=== PATIENT | female | born 1935 | race Hispanic/Latino ===

== ENCOUNTER 2017-08-06 14:58 | Emergency (ER) | payer MEDICARE, BC ==
[2017-08-06 14:59] VITALS: BMI 29.2
[2017-08-06 15:10] VITALS: TEMP 97.8
--- NOTE | 2017-08-06 16:14 | ED PDOC ---
Arrival/HPI - General Chief Complaint: Finger,Hand,&Wrist Time Seen by Provider: 08/06/17 15:01 Historian: Patient - History of Present Illness Narrative History of Present Illness (Text): 08/06/17 15:05 A 81 year old female, with no significant past medical history, presents to the emergency department complaining of left hand 5th digit swelling. Patient reports she was ambulating in her house and tripped in the hallway. She reached out with her left hand to stop fall and her hand hit the wall. Patient denies any fever, chills, numbness/weakness, or any other complaints. No PMD Past Medical History - Provider Review Nursing Documentation Reviewed: Yes - Infectious Disease Hx of Infectious Diseases: None - Tetanus Immunization Tetanus Immunization: Unknown - Reproductive Menopause: Yes - Cardiac Hx Cardiac Disorders: Yes Hx Mitral Valve Prolapse: Yes - Pulmonary Hx Respiratory Disorders: No - Neurological Hx Neurological Disorder: Yes Hx Migraine: Yes - HEENT Hx HEENT Disorder: No - Renal Hx Renal Disorder: No - Endocrine/Metabolic Hx Endocrine Disorders: No - Hematological/Oncological Hx Blood Disorders: No - Integumentary Hx Dermatological Disorder: No - Musculoskeletal/Rheumatological Hx Falls: No - Gastrointestinal Hx Gastrointestinal Disorders: Yes - Genitourinary/Gynecological Hx Genitourinary Disorders: Yes Hx Incontinence: Yes - Psychiatric Hx Psychophysiologic Disorder: Yes Hx Depression: Yes Hx Substance Use: No - Surgical History Hx Cholecystectomy: Yes Hx Orthopedic Surgery: Yes (R hip replacement) - Anesthesia Hx Anesthesia: Yes Hx Anesthesia Reactions: No - Suicidal Assessment Feels Threatened In Home Enviroment: No Family/Social History - Physician Review Nursing Documentation Reviewed: Yes Family/Social History: No Known Family HX Smoking Status: Light Smoker < 10 Cigarettes Daily Hx Alcohol Use: Yes (2 glasses of scotch/day) Hx Substance Use: No Hx Substance Use Treatment: No Allergies/Home Meds Allergies/Adverse Reactions: Allergies No Known Allergies Allergy (Verified 08/06/17 15:06) Home Medications: Home Meds Medication Instructions Recorded Confirmed Vortioxetine Hydrobromide 10 mg PO DAILY 08/06/17 08/06/17 [Trintellix] Review of Systems - Review of Systems Constitutional: absent: Fevers, Night Sweats Eyes: Normal ENT: Normal Respiratory: Normal Cardiovascular: Normal Gastrointestinal: Normal Genitourinary Female: Normal Musculoskeletal: Other (swelling to left hand 5th digit) Skin: Normal Neurological: absent: Focal Weakness, Other (no numbness/weakness) Endocrine: Normal Hemo/Lymphatic: Normal Psychiatric: Normal Physical Exam Vital Signs Reviewed: Yes Vital Signs Temp Pulse Resp BP Pulse Ox 08/06/17 15:09 97.8 F 98 H 17 140/66 97 Temperature: Afebrile Blood Pressure: Normal Pulse: Regular Respiratory Rate: Normal Appearance: Positive for: Well-Appearing Pain Distress: None Mental Status: Positive for: Alert and Oriented X 3 - Systems Exam Pupils: Present: PERRL Extroacular Muscles: Present: EOMI Back: Present: Other (C5-C8 muscle M/R/U/ain/pin) Upper Extremity: Present: NORMAL PULSES (+2 radial pulses), Swelling (left hand 5th digit swelling; inability to extend), Other (sensation intact) Medical Decision Making ED Course and Treatment: 08/06/17 15:07 Impression: 81 year old female with left hand 5th digit swelling. Plan: -- Reassess and disposition Progress Notes: - Scribe Statement The provider has reviewed the documentation as recorded by the Luis Colorado Provider Scribe Attestation: All medical record entries made by the Scribe were at my direction and personally dictated by me. I have reviewed the chart and agree that the record accurately reflects my personal performance of the history, physical exam, medical decision making, and the department course for this patient. I have also personally directed, reviewed, and agree with the discharge instructions and disposition. Disposition/Present on Arrival - Present on Arrival Any Indicators Present on Arrival: No History of DVT/PE: Yes History of Uncontrolled Diabetes: No Urinary Catheter: No History of Decub. Ulcer: No History Surgical Site Infection Following: None - Disposition Have Diagnosis and Disposition been Completed?: Yes Diagnosis: Fracture of left hand Disposition: HOME/ ROUTINE Disposition Time: 16:15 Patient Problems: Current Active Problems Problem Status Onset Fracture of left hand Acute Condition: STABLE Additional Instructions: see orthopedist this week. Referrals: Saray Woodruff, [Primary Care Provider] - Follow up with primary Forms: [employer] (Namibian)
[2017-08-06 16:26] VITALS: BP 135/87; PULSE 84; RESP 16; O2SAT 98
== END 2017-08-06 16:24 | disposition home or self-care (01) ==
LOC: ED 14:58
DX: S62.92XA Unspecified fracture of left hand, initial encounter for closed fracture (principal); W01.0XXA Fall on same level from slipping, tripping and stumbling without subsequent striking against object, initial encounter; Y92.008 Other place in unspecified non-institutional (private) residence as the place of occurrence of the external cause

== ENCOUNTER 2017-12-12 13:03 | Emergency (ER) | payer MEDICARE, BC ==
[2017-12-12 13:03] VITALS: BMI 29.2
[2017-12-12 13:24] VITALS: TEMP 98.3
--- NOTE | 2017-12-12 14:18 | RAD ---
PROCEDURE: Right Foot Radiographs. HISTORY: foot pain s/p trauma COMPARISON: None. FINDINGS: BONES: There is a displaced obliquely oriented fracture of the 5th metatarsal JOINTS: Normal. SOFT TISSUES: Normal. OTHER FINDINGS: None. IMPRESSION: There is a displaced obliquely oriented fracture of the 5th metatarsal
--- NOTE | 2017-12-12 14:26 | ED PDOC ---
Arrival/HPI - General Chief Complaint: Lower Extremity Problem/Injury Time Seen by Provider: 12/12/17 13:46 Historian: Patient - History of Present Illness Narrative History of Present Illness (Text): 12/12/17 14:33 82yo female with pmhx of hypertension present with complaint of right foot pain. States she injured the foot over a week ago, when she woke up to close her window at night. Thinks she "bumped" her foot against an object. She states she has been soaking it on alkaline water without relieve. Denies any other complaint. Past Medical History - Provider Review Nursing Documentation Reviewed: Yes - Infectious Disease Hx of Infectious Diseases: None - Tetanus Immunization Tetanus Immunization: Unknown - Cardiac Hx Cardiac Disorders: Yes Hx Mitral Valve Prolapse: Yes - Pulmonary Hx Respiratory Disorders: No - Neurological Hx Neurological Disorder: Yes Hx Migraine: Yes - HEENT Hx HEENT Disorder: No - Renal Hx Renal Disorder: No - Endocrine/Metabolic Hx Endocrine Disorders: No - Hematological/Oncological Hx Blood Disorders: No - Integumentary Hx Dermatological Disorder: No - Musculoskeletal/Rheumatological Hx Falls: No - Gastrointestinal Hx Gastrointestinal Disorders: Yes - Genitourinary/Gynecological Hx Genitourinary Disorders: Yes Hx Incontinence: Yes - Psychiatric Hx Psychophysiologic Disorder: Yes Hx Depression: Yes Hx Substance Use: No - Surgical History Hx Cholecystectomy: Yes Hx Orthopedic Surgery: Yes (R hip replacement) - Anesthesia Hx Anesthesia: Yes Hx Anesthesia Reactions: No - Suicidal Assessment Feels Threatened In Home Enviroment: No Family/Social History - Physician Review Nursing Documentation Reviewed: Yes Family/Social History: Unknown Family HX Smoking Status: Light Smoker < 10 Cigarettes Daily Hx Alcohol Use: Yes (2 glasses of scotch/day) Hx Substance Use: No Hx Substance Use Treatment: No Allergies/Home Meds Allergies/Adverse Reactions: Allergies No Known Allergies Allergy (Verified 12/12/17 13:08) Home Medications: Home Meds Medication Instructions Recorded Confirmed Vortioxetine Hydrobromide 10 mg PO DAILY 08/06/17 12/12/17 [Trintellix] Losartan [Cozaar] 25 mg PO DAILY 12/12/17 12/12/17 Review of Systems - Physician Review All systems were reviewed & negative as marked: Yes - Review of Systems Constitutional: Normal Eyes: Normal ENT: Normal Respiratory: Normal Cardiovascular: Normal Gastrointestinal: Normal Genitourinary Female: Normal Musculoskeletal: Arthralgias (Right foot pain) Skin: Normal Neurological: Normal Endocrine: Normal Hemo/Lymphatic: Normal Psychiatric: Normal Physical Exam Vital Signs Reviewed: Yes Vital Signs Temp Pulse Resp BP Pulse Ox 12/12/17 15:03 68 18 128/70 100 12/12/17 13:15 98.3 F 83 16 158/72 H 97 Temperature: Afebrile Blood Pressure: Normal Pulse: Regular Respiratory Rate: Normal Appearance: Positive for: Well-Appearing, Non-Toxic, Comfortable Pain Distress: None Mental Status: Positive for: Alert and Oriented X 3 - Systems Exam Head: Present: Atraumatic, Normocephalic Pupils: Present: PERRL Extroacular Muscles: Present: EOMI Conjunctiva: Present: Normal Mouth: Present: Moist Mucous Membranes Neck: Present: Normal Range of Motion Respiratory/Chest: Present: Clear to Auscultation, Good Air Exchange. No: Respiratory Distress, Accessory Muscle Use Cardiovascular: Present: Regular Rate and Rhythm, Normal S1, S2. No: Murmurs Abdomen: No: Tenderness, Distention, Peritoneal Signs Back: Present: Normal Inspection Upper Extremity: Present: Normal Inspection. No: Cyanosis, Edema Lower Extremity: Present: NORMAL PULSES, Normal ROM, Tenderness (Right 5th toe/ foot area), Swelling (Right 5th toe/foot). No: Edema Neurological: Present: GCS=15, CN II-XII Intact, Speech Normal Skin: Present: Warm, Dry, Normal Color. No: Rashes Psychiatric: Present: Alert, Oriented x 3, Normal Insight, Normal Concentration Medical Decision Making ED Course and Treatment: 12/12/17 20:19 Right foot xray - 5th digit oblique fracture Toe edgardo taped and ortho shoe given Referred to a precipitate washer Pt declined pain medication in ED, states she don't like taking medication. - RAD Interpretation Radiology Orders: 12/12/17 13:46 FOOT RIGHT 3 VIEWS ROUTINE [RAD] Stat Disposition/Present on Arrival - Present on Arrival Any Indicators Present on Arrival: No History of DVT/PE: Yes History of Uncontrolled Diabetes: No Urinary Catheter: No History of Decub. Ulcer: No History Surgical Site Infection Following: None - Disposition Have Diagnosis and Disposition been Completed?: Yes Diagnosis: Toe fracture Disposition: HOME/ ROUTINE Disposition Time: 14:45 Patient Plan: Discharge Condition: STABLE Discharge Instructions (ExitCare): Toe Fracture (DC) Additional Instructions: Follow up with your Doctor/Ingot Car Operator Return to ED for any new or worsening symptoms Referrals: Brian Garcia DPM [Staff Provider] - Follow up with primary Forms: [employer] (Nicaraguan)
[2017-12-12 15:03] VITALS: BP 128/70; PULSE 68; RESP 18; O2SAT 100
== END 2017-12-12 15:03 | disposition home or self-care (01) ==
LOC: ED 13:03
DX: S92.351A Displaced fracture of fifth metatarsal bone, right foot, initial encounter for closed fracture (principal); W22.8XXA Striking against or struck by other objects, initial encounter; Y92.009 Unspecified place in unspecified non-institutional (private) residence as the place of occurrence of the external cause

== ENCOUNTER 2018-06-03 12:04 | Emergency (ER) | payer MEDICARE, BC ==
[2018-06-03 12:04] VITALS: BMI 29.2
[2018-06-03 12:26] VITALS: TEMP 98.5
[2018-06-03] MEDS ORDERED: TDAP Vaccine 0.5 mL Syr IM ONE (12:36)
--- NOTE | 2018-06-03 12:42 | ED PDOC ---
Arrival/HPI - General Chief Complaint: Upper Extremity Problem/Injury Historian: Patient - History of Present Illness Narrative History of Present Illness (Text): 06/03/18 12:37 A 82 year old female, whose past medical history includes hypertension(compliant with medication), mitral valve prolapse, and depression, presents to the emergency department complaining of pain s/p fall yesterday. Patient reports she tripped over box of cat food in her hallway at home, and landed on her face and left side. Afterwards she was helped up by her son. States she has an abrasion to the bridge of her nose, and pain to her left forearm/elbow/wrist/hip. Mentions initially she felt only sore, now today she is experiencing pain and became concerned, so the patient decided to come to the ER to be evaluated. Patient denies any LOC, left shoulder pain, bilateral leg pain, neck pain, back pain, abdominal pain, or any other complaints at this time. Also, patient notes she has never had a tetanus shot. NKDA. Notes she is always dizzy. PMD: Dr. Grier Time/Duration: Other (yesterday) Symptom Onset: Gradual Symptom Course: Unchanged Past Medical History - Provider Review Nursing Documentation Reviewed: Yes - Infectious Disease Hx of Infectious Diseases: None - Tetanus Immunization Tetanus Immunization: Unknown - Cardiac Hx Cardiac Disorders: Yes Hx Mitral Valve Prolapse: Yes - Pulmonary Hx Respiratory Disorders: No - Neurological Hx Neurological Disorder: Yes Hx Migraine: Yes - HEENT Hx HEENT Disorder: No - Renal Hx Renal Disorder: No - Endocrine/Metabolic Hx Endocrine Disorders: No - Hematological/Oncological Hx Blood Disorders: No - Integumentary Hx Dermatological Disorder: No - Musculoskeletal/Rheumatological Hx Falls: No - Gastrointestinal Hx Gastrointestinal Disorders: Yes - Genitourinary/Gynecological Hx Genitourinary Disorders: Yes Hx Incontinence: Yes - Psychiatric Hx Psychophysiologic Disorder: Yes Hx Depression: Yes Hx Substance Use: No - Surgical History Hx Cholecystectomy: Yes Hx Orthopedic Surgery: Yes (R hip replacement) - Anesthesia Hx Anesthesia: Yes Hx Anesthesia Reactions: No - Suicidal Assessment Feels Threatened In Home Enviroment: No Family/Social History - Physician Review Nursing Documentation Reviewed: Yes Family/Social History: No Known Family HX Smoking Status: Light Smoker < 10 Cigarettes Daily Hx Alcohol Use: Yes Hx Substance Use: No Hx Substance Use Treatment: No Allergies/Home Meds Allergies/Adverse Reactions: Allergies No Known Allergies Allergy (Verified 06/03/18 12:20) Home Medications: Home Meds Medication Instructions Recorded Confirmed Vortioxetine Hydrobromide 10 mg PO DAILY 08/06/17 06/03/18 [Trintellix] Losartan [Cozaar] 25 mg PO DAILY 12/12/17 06/03/18 Review of Systems - Physician Review All systems were reviewed & negative as marked: Yes - Review of Systems Gastrointestinal: absent: Abdominal Pain Musculoskeletal: Other (left forearm/elbow/wrist/hip pain, no bilateral leg pain and no left shoulder pain.). absent: Back Pain, Neck Pain Skin: Other (abrasion to bridge of nose.) Neurological: Dizziness (baseline). absent: Other (no LOC) Physical Exam Vital Signs Reviewed: Yes Vital Signs Temp Pulse Resp BP Pulse Ox 06/03/18 12:20 98.5 F 77 16 152/77 H 94 L Temperature: Afebrile Blood Pressure: Normal Pulse: Regular Respiratory Rate: Normal Appearance: Positive for: Well-Appearing, Non-Toxic, Comfortable Pain Distress: None Mental Status: Positive for: Alert and Oriented X 3 - Systems Exam Head: Present: Atraumatic, Normocephalic Pupils: Present: PERRL Extroacular Muscles: Present: EOMI Conjunctiva: Present: Normal Mouth: Present: Moist Mucous Membranes Nose (External): Present: Abrasion (bridge of nose, some ecchymosis, no active bleeding.) Neck: Present: Normal Range of Motion Respiratory/Chest: Present: Clear to Auscultation, Good Air Exchange. No: Respiratory Distress, Accessory Muscle Use Cardiovascular: Present: Regular Rate and Rhythm, Normal S1, S2. No: Murmurs Abdomen: No: Tenderness, Distention, Peritoneal Signs Back: Present: Normal Inspection Upper Extremity: Present: Tenderness (left hip/forearm/elbow/wrist), Swelling (mild swelling to left elbow) Lower Extremity: Present: Normal Inspection. No: Edema Neurological: Present: GCS=15, CN II-XII Intact, Speech Normal Skin: Present: Warm, Dry, Normal Color. No: Rashes Psychiatric: Present: Alert, Oriented x 3, Normal Insight, Normal Concentration Medical Decision Making ED Course and Treatment: 06/03/18 12:42 Impression: 82 year old female with an abrasion to the bridge of her nose, and pain to her left forearm/elbow/wrist/hip s/p fall. Physical exam shows left hip/forearm/wrist/elbow tenderness, mild swelling to left elbow; abrasion to bridge of nose, some ecchymosis, no active bleeding at this time. Plan: -- Maxillofacial CT -- Left Elbow X-ray -- Left Hip X-Ray -- Left Humerus X-Ray -- Left Wrist X-Ray -- Left Forearm X-Ray -- Tylenol -- Boostrix Vaccine -- Reassess and disposition Prior Visits: Notes and results from previous visits were reviewed. Patient was last seen here in the emergency department on 12/12/2017 for right foot pain. Patient was discharged home with toe fracture. Progress Notes: 06/03/2018 14:06 Left Humerus X-Ray IMPRESSION: Acute nondisplaced impacted fracture in the humeral head. No dislocation. Dictator: Sophy Kinsey MD 06/03/2018 14:07 Left Elbow X-ray IMPRESSION: Acute nondisplaced fracture in the radial head. No dislocation. The study is tagged to the PA review folder. Dictator: Sophy Kinsey MD 06/03/18 14:[address] Ga, who agrees with emergency department treatment and plan, and agrees to have patient follow-up with him at his office. 06/03/18 15:[address] IMPRESSION: No acute fracture. Dictator: Sophy Kinsey MD - Scribe Statement The provider has reviewed the documentation as recorded by the Luis Colorado Provider Scribe Attestation: All medical record entries made by the Luis were at my direction and personally dictated by me. I have reviewed the chart and agree that the record accurately reflects my personal performance of the history, physical exam, medical decision making, and the department course for this patient. I have also personally directed, reviewed, and agree with the discharge instructions and disposition. Disposition/Present on Arrival - Present on Arrival Any Indicators Present on Arrival: No History of DVT/PE: Yes History of Uncontrolled Diabetes: No Urinary Catheter: No History of Decub. Ulcer: No History Surgical Site Infection Following: None - Disposition Have Diagnosis and Disposition been Completed?: Yes Diagnosis: Radial head fracture, Humeral head fracture Disposition: HOME/ ROUTINE Disposition Time: 15:29 Condition: GOOD Discharge Instructions (ExitCare): Forearm Fracture (DC), Radius Fracture, Shoulder Fracture (DC) Additional Instructions: Follow up with the orthopedics as soon as possible and keep your left arm on the sling as much as possible and do not remove the posterior splint. Call Dr Myrtle Ga to make an appointment # [phone]. Prescriptions: Acetaminophen [Tylenol 325mg tab] 650 mg PO Q4 #20 tab Referrals: Myrtle Ga MD [Staff Provider] - Follow up with primary Forms: [employer] (Faroese)
--- NOTE | 2018-06-03 14:10 | RAD ---
PROCEDURE: Radiographs of the left humerus. HISTORY: s/p fall COMPARISON: None. FINDINGS: BONES: Bone alignment is normal. There is diffuse bone demineralization. 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 SOFT TISSUES: Normal. OTHER FINDINGS: None. IMPRESSION: Acute nondisplaced impacted fracture in the humeral head. No dislocation.
--- NOTE | 2018-06-03 14:11 | RAD ---
Date of service: 06/03/2018 PROCEDURE: Radiographs of the left elbow. HISTORY: s/p fall COMPARISON: No prior. FINDINGS: BONES: There is an acute transverse nondisplaced fracture in the radial head. Bone alignment is normal. There is diffuse bone demineralization. JOINTS: Normal. No osteoarthritis. SOFT TISSUES: Normal. JOINT EFFUSION: None. OTHER FINDINGS: None IMPRESSION: Acute nondisplaced fracture in the radial head. No dislocation. The study is tagged to the PA review folder.
[2018-06-03 15:30] VITALS: BP 148/71; PULSE 71; RESP 18; O2SAT 98
--- NOTE | 2018-06-03 15:38 | CT ---
Date of service: 06/03/2018 PROCEDURE: CT MAXILLOFACIAL BONES WITHOUT CONTRAST HISTORY: s/p fall bleeing from nose COMPARISON: None available. TECHNIQUE: Contiguous axial CT images of the maxillofacial bones were obtained. Coronal and sagittal reformats were generated. Radiation dose: Total exam DLP = 869.61 mGy-cm. This CT exam was performed using one or more of the following dose reduction techniques: Automated exposure control, adjustment of the mA and/or kV according to patient size, and/or use of iterative reconstruction technique. FINDINGS: NASAL BONES: The nasal bones are intact. No acute displaced fracture. ORBITS: No acute orbital fracture. The globes are symmetric and normal in appearance. PARANASAL SINUSES/ MASTOIDS: Predominantly clear. MAXILLA: No acute maxillofacial fracture. MANDIBLE/ TEMPOROMANDIBULAR JOINTS: No acute fracture or dislocation. SKULL BASE: Unremarkable. TEMPORAL BONES: Middle ears and mastoid grossly unremarkable. OTHER FINDINGS: None. IMPRESSION: No acute fracture.
== END 2018-06-03 15:53 | disposition home or self-care (01) ==
LOC: ED 12:04
DX: S52.125A Nondisplaced fracture of head of left radius, initial encounter for closed fracture (principal); S42.392A Other fracture of shaft of left humerus, initial encounter for closed fracture; W01.0XXA Fall on same level from slipping, tripping and stumbling without subsequent striking against object, initial encounter; Y92.008 Other place in unspecified non-institutional (private) residence as the place of occurrence of the external cause

== ENCOUNTER 2018-07-06 12:29 | Inpatient (IN) | payer MEDICARE, BC ==
[2018-07-06 12:34] VITALS: BMI 22.8
--- NOTE | 2018-07-06 13:16 | ED PDOC ---
Arrival/HPI - General Chief Complaint: Psychiatric Evaluation Historian: Patient - History of Present Illness Narrative History of Present Illness (Text): 07/06/18 13:14 82 year old female, whose past medical history hypertension, mitral valve prolapse, and depression, presents to the emergency department complaining of depression and suicidal ideation for the past month. Patient states she is working with Dr. Green, but is unhappy with her medication (klonopin and Zanax) she still feels depressed. Patient states she feels suicide is a "good answer." She denies fevers, chills, headache, dizziness, chest pain, shortness of breath, dyspnea on exertion, cough, abdominal pain, nausea, vomiting, diarrhea, back pain, neck pain, or any other complaint. Psychiatrist: Dr. Green Time/Duration: > month Symptom Course: Unchanged Activities at Onset: Light Context: Home Past Medical History - Provider Review Nursing Documentation Reviewed: Yes - Travel History Have you recently traveled outside [place] w/in the past 3 mons?: No - Infectious Disease Hx of Infectious Diseases: None - Tetanus Immunization Tetanus Immunization: Unknown - Reproductive Menopause: Yes - Cardiac Hx Cardiac Disorders: Yes Hx Mitral Valve Prolapse: Yes - Pulmonary Hx Respiratory Disorders: No - Neurological Hx Neurological Disorder: Yes Hx Migraine: Yes - HEENT Hx HEENT Disorder: No - Renal Hx Renal Disorder: No - Endocrine/Metabolic Hx Endocrine Disorders: No - Hematological/Oncological Hx Blood Disorders: No - Integumentary Hx Dermatological Disorder: No - Musculoskeletal/Rheumatological Hx Falls: No - Gastrointestinal Hx Gastrointestinal Disorders: Yes - Genitourinary/Gynecological Hx Genitourinary Disorders: Yes Hx Incontinence: Yes - Psychiatric Hx Psychophysiologic Disorder: Yes Hx Depression: Yes Hx Substance Use: No - Surgical History Hx Cholecystectomy: Yes Hx Orthopedic Surgery: Yes (R hip replacement) - Anesthesia Hx Anesthesia: Yes Hx Anesthesia Reactions: No Hx Malignant Hyperthermia: No - Suicidal Assessment Feels Threatened In Home Enviroment: No Family/Social History - Physician Review Nursing Documentation Reviewed: Yes Family/Social History: No Known Family HX Smoking Status: Light Smoker < 10 Cigarettes Daily Hx Alcohol Use: Yes Hx Substance Use: No Hx Substance Use Treatment: No Allergies/Home Meds Allergies/Adverse Reactions: Allergies No Known Allergies Allergy (Verified 07/06/18 17:37) Home Medications: Home Meds Medication Instructions Recorded Confirmed Aripiprazole 5 mg PO HS 07/06/18 07/06/18 RX: Alprazolam [Xanax] 0.5 mg PO BID 07/06/18 07/06/18 RX: Clonazepam [Klonopin] 0.5 mg PO BID 07/06/18 07/06/18 RX: Metoprolol Tartrate [Lopressor] 50 mg PO DAILY 07/06/18 07/06/18 Venlafaxine [Effexor] 37.5 mg PO DAILY 07/06/18 07/06/18 buPROPion XL [Wellbutrin XL] 300 mg PO DAILY 07/06/18 07/06/18 Review of Systems - Physician Review All systems were reviewed & negative as marked: Yes - Review of Systems Constitutional: absent: Fevers Eyes: absent: Vision Changes Respiratory: absent: SOB, Cough Cardiovascular: absent: Chest Pain Gastrointestinal: absent: Diarrhea, Nausea, Vomiting, Appetite Changes Musculoskeletal: absent: Back Pain, Neck Pain Neurological: absent: Headache, Dizziness Psychiatric: Depression, Suicidal Ideation Physical Exam Vital Signs Reviewed: Yes Vital Signs Temp Pulse Resp BP Pulse Ox 07/06/18 12:43 98.0 F 97 H 18 176/89 H 97 Temperature: Afebrile Blood Pressure: Hypertensive Pulse: Tachycardic Respiratory Rate: Normal Appearance: Positive for: Well-Appearing, Non-Toxic, Comfortable Pain Distress: None Mental Status: Positive for: Alert and Oriented X 3 - Systems Exam Head: Present: Atraumatic, Normocephalic Pupils: Present: PERRL Extroacular Muscles: Present: EOMI Conjunctiva: Present: Normal Mouth: Present: Moist Mucous Membranes Neck: Present: Normal Range of Motion Respiratory/Chest: Present: Clear to Auscultation, Good Air Exchange. No: Respiratory Distress, Accessory Muscle Use Cardiovascular: Present: Regular Rate and Rhythm, Normal S1, S2. No: Murmurs Abdomen: No: Tenderness, Distention, Peritoneal Signs Back: Present: Normal Inspection Upper Extremity: Present: Normal Inspection. No: Cyanosis, Edema Lower Extremity: Present: Normal Inspection. No: Edema Neurological: Present: GCS=15, CN II-XII Intact, Speech Normal Skin: Present: Warm, Dry, Normal Color. No: Rashes Psychiatric: Present: Alert, Oriented x 3, Normal Insight, Normal Concentration, Depressed Mood, Suicidal Ideation Medical Decision Making ED Course and Treatment: 07/06/18 13:15 Impression: 82 year old female who presents to the emergency department complaining of depression and suicidal ideation. Differential Diagnosis included but are not limited to: --Depression Plan: -- Labs -- Chest X-ray -- Urinalysis -- EKG --PES evaluation -- Reassess and disposition Prior Visits: Notes and results from previous visits were reviewed. Progress Notes: 07/06/18 15:59 Labs reviewed with Urinalysis positive for nitrites & many bacteria. Rocephin ordered. Patient otherwise is medically cleared. PES called. 07/06/18 16:21 PES risk consulting treasury director states patient will be admitted under Dr. Mosher(psychiatry) under the diagnosis of depression. - Lab Interpretations I have reviewed the lab results: Yes - RAD Interpretation Narrative RAD Interpretations (Text): 07/06/18 14:14 Chest X-ray reviewed, shows: IMPRESSION: No active pulmonary disease. Radiology Orders: 07/06/18 13:01 CHEST PORTABLE [RAD] Stat Animal Husbandman: Radiologist - EKG Interpretation EKG Interpretation (Text): 07/06/18 13:33 EKG reviewed, shows: NSR at 94 bpm with LVH. No qt prolongation. Interpreted by ED Physician: Yes Type: 12 lead EKG - Scribe Statement The provider has reviewed the documentation as recorded by the Luis Long Provider Scribe Attestation: All medical record entries made by the Scribe were at my direction and personally dictated by me. I have reviewed the chart and agree that the record accurately reflects my personal performance of the history, physical exam, medical decision making, and the department course for this patient. I have also personally directed, reviewed, and agree with the discharge instructions and disposition. Disposition/Present on Arrival - Present on Arrival Any Indicators Present on Arrival: Yes History of DVT/PE: Yes History of Uncontrolled Diabetes: No Urinary Catheter: No History of Decub. Ulcer: No History Surgical Site Infection Following: None - Disposition Have Diagnosis and Disposition been Completed?: Yes Diagnosis: Depression, UTI (urinary tract infection) Disposition: HOSPITALIZED Disposition Time: 16:15 Patient Plan: Admission Patient Problems: Current Active Problems Problem Status Onset Anxiety Acute Depression Acute MDD (major depressive disorder) Acute UTI (urinary tract infection) Acute Condition: STABLE
[2018-07-06 13:19] LABS: BASO # 0.02 K/mm3 (0.0-2.0); BASO % 0.2 % (0.0-3.0); EOS # 0.1 (0.0-0.7); EOS % 0.7 % (1.5-5.0); GRAN # 7.75 (1.4-6.5); GRAN % 71.5 % (50.0-68.0); HEMOGLOBIN 14.4 g/dL (12.0-16.0); LYMPH # 2.3 (1.2-3.4); LYMPH % 20.8 % (22.0-35.0); MEAN CORPUSCULAR HGB CONC 32.7 g/dl (31.0-37.0); MONO # 0.7 (0.1-0.6); MONO % 6.8 % (1.0-6.0); RBC 4.64 10^6/uL (3.5-6.1); RED CELL DISTRIBUTION WIDTH 13.6 % (11.5-14.5); WHITE BLOOD COUNT 10.8 10^3/uL (4.5-11.0)
[2018-07-06 13:34] LABS: ACETAMINOPHEN < 10.0 ug/ml (10.0-20.0); SALICYLATE < 1 mg/dL (2.0-20.0)
[2018-07-06 13:47] LABS: FREE T4 0.95 ng/dL (0.78-2.19)
[2018-07-06 13:51] LABS: ALB/GLOB RATIO 1.1 (1.1-1.8); ALBUMIN 4.1 g/dL (3.0-4.8); ALT/SGPT 17 U/L (7-56); AST/SGOT 21 U/L (14-36); BLOOD UREA NITROGEN 18 mg/dL (7-21); CALCIUM 9.6 mg/dL (8.4-10.5); GFR NON-AFRICAN AMERICAN 53
--- NOTE | 2018-07-06 14:07 | RAD ---
Date of service: 07/06/2018 HISTORY: psych clearance COMPARISON: 12/19/2013 FINDINGS: LUNGS: The lungs are well inflated and clear. PLEURA: No pleural effusions or pneumothorax. CARDIOVASCULAR: The heart is normal in size. No aortic atherosclerotic calcification present. OSSEOUS STRUCTURES: Within normal limits for the patient's age. VISUALIZED UPPER ABDOMEN: Normal. OTHER FINDINGS: None. IMPRESSION: No active pulmonary disease.
[2018-07-06 15:14] LABS: URINE BILIRUBIN NEGATIVE (NEGATIVE); URINE BLOOD NEGATIVE (NEGATIVE); URINE GLUCOSE (UA) NEGATIVE (NEGATIVE); URINE LEUKOCYTE ESTERASE LARGE Leu/uL (NEGATIVE); URINE PROTEIN NEGATIVE mg/dL (<30 mg/dL); URINE UROBILINOGEN 0.2 E.U./dL (<1 E.U./dL)
[2018-07-06 15:16] LABS: URINE APPEARANCE SL CLOUDY (CLEAR); URINE COLOR LIGHT YELLOW (YELLOW)
[2018-07-06 15:20] LABS: URINE BACTERIA MANY (NEG); URINE RBC 0 - 2 /hpf (0-2)
[2018-07-06] MEDS ORDERED: cefTRIAXone 1 gm 1 GM/100 ML BAG IVPB STA (15:23)
[2018-07-06 16:45] VITALS: O2SAT 97
[2018-07-06] MEDS ORDERED: Magnesium Hydroxide Susp 30 ml UD PO PRN (17:47)
[2018-07-06] MEDS ORDERED: Alum-Mag Hydrox-Simethicone Susp (30 mL) PO PRN (17:47)
--- NOTE | 2018-07-06 18:45 | PCM.BM ---
<Diego Alonso - Last Filed: 07/06/18 18:42> Treatment Plan Problems - Problems identified on initial assessmt DEPRESSIVE MOOD Date Initiated: 07/06/18 Time Initiated: 18:42 Assessment reference: HP, Other Status: Active HOPLESSNESS/HELPLESSNESS Date Initiated: 07/06/18 Time Initiated: 18:43 Assessment reference: HP, Other Status: Active SELFCARE DEFICIT Date Initiated: 07/06/18 (FALL RISK) Time Initiated: 18:46 Assessment reference: HP, Other Status: Active Treatment assets and liabiliti Patient Assests: cooperative, good support system, negotiates basic needs, good interpersonal skills, strong lacey Patient Liabilities: medical problems, imparied memory, visual impairment, other - Milieu Protocol Maintain good personal hygiene: daily Encourage regular showers, daily Remind patient to perform daily oral care, daily Assist patient to perform ADL's Maintain personal safety: daily Educate patient to report safety concerns to staff, daily Monitor environment for contraband/sharps Medication safety: Monitor for expected outcome, potential side effects: daily, Assess barriers to learning: daily, Assess readiness for medication education: daily Discharge/Continuing Care - Education Needs Education Needs: Patient Medication, Patient Diagnosis/Disease Process, Patient Coping Skills, Patient Community resources, Patient Activities of Daily Living, Patient Health Practices/Safety, Patient Personal Hygiene/Grooming, Patient Aftercare Safety Plan - Discharge Discharge Criteria: Free of Suicidal thoughts, Free of Homicidal thoughts, Free of paranoid thoughts, Free of agitation, Ability to care for self <Vidhi Lopez - Last Filed: 07/07/18 08:49> - Diagnosis (1) MDD (major depressive disorder) Status: Acute Interventions: 07/07/18 08:49 Psychoeducation Psychopharmacology/adjustment of medications as needed/ monitoring possible side effects Evaluate pt on daily basis Compliance with medications and follow up appointments Suicide and homicide risk assessment and prevention Relapse prevention Reduction of symptoms Improve functional status Family involvement As outpatient: cognitive behavioral therapy (2) Anxiety Status: Acute Interventions: 07/07/18 08:49 Psychoeducation Psychopharmacology/adjustment of medications as needed/ monitoring possible side effects Evaluate pt on daily basis Discussion of importance of being compliant with medications and follow up appointments Suicide and homicide risk assessment and prevention, coping strategies, safety plan Reduction of symptoms Relaxation techniques and breathing exercises Improve functional status Family involvement Cognitive behavioral therapy as outpatient <Stephanie Wong - Last Filed: 07/07/18 17:48> Family Contact Family involvement: Family/SO is involved Family contact: Patient agrees to contact Family contact name: Carlo Sepulveda Family contacted how many times per week?: 2 <Natalya Erickson - Last Filed: 07/10/18 12:15>
--- NOTE | 2018-07-06 21:41 | CARD ---
APPROVED REPORT Date of service: 07/06/2018 EKG Measurement Heart [id number] <Conclusion> Normal sinus rhythm Left ventricular hypertrophy with repolarization abnormality Abnormal ECG
[2018-07-07 08:36] LABS: GLUCOSE,FASTING 97 mg/dL (65-110); HDL CHOLESTEROL 56 mg/dL (29-60)
[2018-07-07 08:46] LABS: LDL CHOLESTEROL 164 mg/dL (0-129)
[2018-07-07 08:52] LABS: FREE T4 0.96 ng/dL (0.78-2.19)
--- NOTE | 2018-07-07 16:04 | PCM.PSYCH ---
Initial Psychiatric Evaluation - Initial Psychiatric Evaluation Type of Admission: Voluntary Legal Status: Capacity (Patient has capacity to sign consent for treatment) Chief Complaint (in patient's own words): "I was doing so badly, for past week I was thinking I do not want to live anymore, I was thinking either to cut my wrists or overdose on medications, and struggling a lot, I am hopeless and helpless, I cannot take medications because I fell in May, I broke my arm, I told my son that I need to go to the hospital or I will end it all" Patient's Reaction to Hospitalization: Patient was admitted to the psychiatric inpatient unit for evaluation and stabilization of depressive symptoms, inability to function, patient had suicid al ideation and plan either to cut her wrists or to overdose on medications. 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 Patient requires further evaluation and stabilization and medication adjustments. Patient was seen today at the treatment team meeting, patient presented with acceptable personal hygiene very short hair card, fair eye contact, speech was normal rate tone quality and quantity, fair ADLs. Patient reported that she was feeling depressed "for all of my life", patient reported she had been seen by psychiatrist at the age of 15 but "it was rude", patient stopped going to follow up's, second. Her depression was at her 40s, patient was followed up by psychiatrist who prescribed Luvox for her and she was doing "relatively well". Patient reported she started to feel depressed again for the past few months, that is why she she was looking for outpatient psychiatrist and started to see Dr. Jt Green, "I did not like medication what he prescribed to me, more over I fell in May, I broke my shoulder and elbow, I need to have a arm sling", patient reported that she is currently on Xanax, "and other medications" which patient does not remember. Patient reported that she feels her medication in [facility], 12 months [facility] contacted [phone] and medication list was obtained. May 18, 2018 patient was prescribed the following medications: Clonazepam 0.5 mg twice a day Abilify 5 mg daily Wellbutrin 300 mg daily Effexor 37.5 mg daily Patient was prescribed metoprolol 50 mg daily 07/03/2018 patient was prescribed Xanax 0.5 mg twice a day Psychotropic medications were prescribed by Dr. Green, and metoprolol by Dr. Hardy Patient reports she was prescribed multiple medications while under the care of . Patient reports she started to feel tremulous. As a result, patient fell face down and hit her head and nose in May 2018. Patient reports she broke her arm and was put in a sling. Patient reports after she fell, her depression started. Patient expressed no desire to continue on Xanax, Abilify or Klonopin. Patient reported for the past months or so she became so depressed that "nothing was making me feel happy, when I wake up I have heavy feeling or depression, I started to think that I do not want to live anymore, I was thinking that it would be better off without me", patient reported that she was thinking to cut her wrists or overdose on medications. Patient was given examples about her family strong history of suicidal attempts, pt's cousin and his committed suicide by carbon monoxide and hanging. Patient indicated that she has never attempted suicide and never had these thoughts before, only recently with everything going on with her medication changes. Pt denied HI or A/V/H. Pt was not able to contract for safety in the emergency room but contracted for safety during the interview. pt denied to being admitted to the psychiatric inpatient unit and denied history of suicidal attempts. Past medical history: Patient reports since she fell, having cramping and numbness in her legs and feet. Patient reports her PMD is Dr. Calderon. Urine analysis showed possible infection in the emergency room, patient was informed about that, medical consult was called, patient reported that she has frequent urination and burning upon urination. h/o DVT and HTN. Patient reported that she does not like any medications, patient was educated about ECT treatment, patient reported that she did research in the past, and she is open to have that procedure done, patient was educated about the risk, benefits and alternatives of the 15th. Patient replied "I think it is in the answer I was looking for". Patient reported after fall she started to experience flashbacks and nightmares and reliving of the situation, patient reported no abuse in her life about marriage was unhappy. Patient denied using any IV drugs, but smokes about 2 cigarettes a day, and has 1 drink at the nighttime, patient denied any history of addiction, counseling provided, nicotine patch is not indicated at this point because patient was smoking about 2 cigarettes a day. Family history: Strong family history of depression as well as suicidal attempts. 07/06/18 13:05 07/06/18 13:05 Lab Results 07/07/18 08:10: Free T4 0.96, TSH 3rd Generation 2.37 07/07/18 08:10: Fasting Glucose 97, Triglycerides 86, Cholesterol 227 H, LDL Cholesterol Direct 164 H, HDL Cholesterol 56 07/06/18 14:50: Urine Color Light yellow, Urine Appearance Sl cloudy, Urine pH 7.0, Ur Specific [place] <= 1.005, Urine Protein Negative, Urine Glucose (UA) Negative, Urine Ketones Negative, Urine Blood Negative, Urine Nitrate Positive H , Urine Bilirubin Negative, Urine Urobilinogen 0.2, Ur Leukocyte Esterase Large H, Urine RBC 0 - 2, Urine WBC 5 - 10, Ur Epithelial Cells 1 - 3, Urine Bacteria Many 07/06/18 13:05: Sodium 138, Potassium 4.2, Chloride 105, Carbon Dioxide 28, Anion Gap 9 L, BUN 18, Creatinine 1.0, Est GFR ( Amer) > 60, Est GFR (Non-Af Amer) 53, Random Glucose 115 H, Calcium 9.6, Total Bilirubin 0.5, AST 21, ALT 17, Alkaline Phosphatase 63, Total Protein 7.8, Albumin 4.1, Globulin 3.7, Albumin/Globulin Ratio 1.1 07/06/18 13:05: Free T4 0.95, TSH 3rd Generation 3.20, Alcohol, Quantitative < 10 07/06/18 13:05: Salicylates < 1 L, Acetaminophen < 10.0 L 07/06/18 13:05: WBC 10.8, RBC 4.64, Hgb 14.4, Hct 44.1, MCV 95.0, MCH 31.0, MCHC 32.7, RDW 13.6, Plt Count 263, MPV 10.0, Gran % 71.5 H, Lymph % (Auto) 20.8 L, [place] % (Auto) 6.8 H, Eos % (Auto) 0.7 L, Baso % (Auto) 0.2, Gran # 7.75 H, Lymph # (Auto) 2.3, [place] # (Auto) 0.7 H, Eos # (Auto) 0.1, Baso # (Auto) 0.02 Vital Signs Temp Pulse Resp BP Pulse Ox 07/07/18 08:53 87 157/88 H 07/07/18 07:10 98.3 F 87 20 157/88 H 07/06/18 18:00 18 07/06/18 16:35 98.2 F 81 18 158/70 H 97 07/06/18 15:00 90 18 168/78 H 96 07/06/18 12:43 98.0 F 97 H 18 176/89 H 97 The patient failed the outpatient lower level of care: Yes Current Medications: Active Medications Generic Name Dose Route Start Last Admin Trade Name Freq PRN Reason Stop Dose Admin Acetaminophen 650 mg 07/06/18 17:48 Tylenol 325mg Tab PO Q6H PRN Pain, moderate (4-7) Al Hydrox/Mg Hydrox/Simethicone 30 ml 07/06/18 17:47 Maalox Plus 30 Ml PO DAILY PRN Indigestion / Heartburn Alprazolam 0.5 mg 07/06/18 18:36 Xanax PO 07/14/18 08:01 BID PRN Anxiety Protocol Magnesium Hydroxide 30 ml 07/06/18 17:47 Milk Of Magnesia PO DAILY PRN Constipation Metoprolol Tartrate 50 mg 07/07/18 08:00 Lopressor PO DAILY ESVIN Zolpidem Tartrate 5 mg 07/06/18 18:39 07/06/18 21:28 Ambien PO 5 mg HS PRN Administration Insomnia Protocol Present on Admission - Present on Admission Any Indicators Present on Admission: No Review of Systems - Review of Systems Systems not reviewed;Unavailable: Acuity of Condition - Constitutional Constitutional: As Per HPI - EENT Eyes: As Per HPI Ears: As Per HPI Nose/Mouth/Throat: As Per HPI - Breasts Breasts: As Per HPI - Cardiovascular Cardiovascular: As Per HPI - Respiratory Respiratory: As Per HPI - Gastrointestinal Gastrointestinal: As Per HPI - Genitourinary Genitourinary: As Per HPI - Reproductive: Female Reproductive:Female: As Per HPI - Menstruation Menstruation: As Per HPI - Musculoskeletal Musculoskeletal: As Per HPI - Integumentary Integumentary: As Per HPI - Neurological Neurological: As Per HPI - Psychiatric Psychiatric: As Per HPI - Endocrine Endocrine: As Per HPI - Hematologic/Lymphatic Hematologic: As Per HPI Past Patient History - Past Psychiatric History Previous Treatment History: None Prior Professional Help: see HPI Prior Psychiatric Treatment: see HPI At what hospital: see HPI Duration: see HPI Nature of Treatment: see HPI Explanation of prior treatment: see HPI - PSYCHIATRIC Hx Anxiety: Yes Hx Depression: Yes Hx Substance Use: No - Infectious Disease Hx of Infectious Diseases: None - Tetanus Immunizations Tetanus Immunization: Unknown - CARDIAC Hx Cardiac Disorders: Yes Hx Hypertension: Yes Hx Mitral Valve Prolapse: Yes - PULMONARY Hx Respiratory Disorders: No - NEUROLOGICAL Hx Neurological Disorder: Yes Hx Migraine: Yes - HEENT Hx HEENT Problems: No - RENAL Hx Chronic Kidney Disease: No - ENDOCRINE/METABOLIC Hx Endocrine Disorders: No - HEMATOLOGICAL/ONCOLOGICAL Hx Blood Disorders: No - INTEGUMENTARY Hx Dermatological Problems: No - MUSCULOSKELETAL/RHEUMATOLOGICAL Hx Falls: Yes Hx Fractures: Yes (Left arm) - GASTROINTESTINAL Hx Gastrointestinal Disorders: No - GENITOURINARY/GYNECOLOGICAL Hx Genitourinary Disorders: Yes Hx Incontinence: Yes - SURGICAL HISTORY Hx Cholecystectomy: Yes Hx Orthopedic Surgery: Yes (R hip replacement) - ANESTHESIA Hx Anesthesia: Yes Hx Anesthesia Reactions: No Hx Malignant Hyperthermia: No - Medical/Surgical History Reviewed & confirmed: by de Meds Allergies/Adverse Reactions: Allergies Allergy/AdvReac Type Severity Reaction Status Date / Time No Known Allergies Allergy Verified 07/06/18 17:37 Mental Status Examination - Personal Presentation Personal Presentation: Looks stated age - Affect Affect: Flat - Motor Activity Motor Activity: Calm - Reliability in Providing Information Reliability in Providing Information: Fair - Speech Speech: Organized - Mood Mood: Depressed - Formal Thought Process Formal Thought Process: No Impairment - Obsessions/Compulsions Obsessions: None Compulsions: None - Cognitive Functions Orientation: Person, Place, Situation, Time Sensorium: Alert Abstract Thinking: As evidence by literal perception of proverbs Estimate of Intelligence: Average Judgement: Intact, as evidence by: Insight regarding need for hospitalization - Risk Risk: Suicidal, Diminished functioning - Strength & Assets Inventory Strength & Assets Inventory: Intelligence, Family support, Cooperative - Limitations Limitations: Other (severeness of the depression) Psychiatric Physical Exam - Physical Exam Reviewed and confirmed: Emergency Department Physical Exam Results - Vital Signs Recent Vital Signs: Last Vital Signs Temp 98.3 F 07/07/18 07:10 Pulse 87 07/07/18 07:10 Resp 20 07/07/18 07:10 BP 157/88 H 07/07/18 07:10 Pulse Ox 97 07/06/18 16:35 - Labs Result Diagrams: 07/06/18 13:05 07/06/18 13:05 Labs: Laboratory Results - last 24 hr 07/06/18 07/06/18 07/06/18 13:05 13:05 13:05 WBC 10.8 RBC 4.64 Hgb 14.4 Hct 44.1 MCV 95.0 MCH 31.0 MCHC 32.7 RDW 13.6 Plt Count 263 MPV 10.0 Gran % 71.5 H Lymph % (Auto) 20.8 L [place] % (Auto) 6.8 H Eos % (Auto) 0.7 L Baso % (Auto) 0.2 Gran # 7.75 H Lymph # (Auto) 2.3 [place] # (Auto) 0.7 H Eos # (Auto) 0.1 Baso # (Auto) 0.02 Sodium Potassium Chloride Carbon Dioxide Anion Gap BUN Creatinine Est GFR ( Amer) Est GFR (Non-Af Amer) Random Glucose Fasting Glucose Calcium Total Bilirubin AST ALT Alkaline Phosphatase Total Protein Albumin Globulin Albumin/Globulin Ratio Triglycerides Cholesterol LDL Cholesterol Direct HDL Cholesterol Free T4 0.95 TSH 3rd Generation 3.20 Urine Color Urine Appearance Urine pH Ur Specific [place] Urine Protein Urine Glucose (UA) Urine Ketones Urine Blood Urine Nitrate Urine Bilirubin Urine Urobilinogen Ur Leukocyte Esterase Urine RBC Urine WBC Ur Epithelial Cells Urine Bacteria Salicylates < 1 L Acetaminophen < 10.0 L Alcohol, Quantitative < 10 07/06/18 07/06/18 07/07/18 13:05 14:50 08:10 WBC RBC Hgb Hct MCV MCH MCHC RDW Plt Count MPV Gran % Lymph % (Auto) [place] % (Auto) Eos % (Auto) Baso % (Auto) Gran # Lymph # (Auto) [place] # (Auto) Eos # (Auto) Baso # (Auto) Sodium 138 Potassium 4.2 Chloride 105 Carbon Dioxide 28 Anion Gap 9 L BUN 18 Creatinine 1.0 Est GFR ( Amer) > 60 Est GFR (Non-Af Amer) 53 Random Glucose 115 H Fasting Glucose 97 Calcium 9.6 Total Bilirubin 0.5 AST 21 ALT 17 Alkaline Phosphatase 63 Total Protein 7.8 Albumin 4.1 Globulin 3.7 Albumin/Globulin Ratio 1.1 Triglycerides 86 Cholesterol 227 H LDL Cholesterol Direct 164 H HDL Cholesterol 56 Free T4 TSH 3rd Generation Urine Color Light yellow Urine Appearance Sl cloudy Urine pH 7.0 Ur Specific [place] <= 1.005 Urine Protein Negative Urine Glucose (UA) Negative Urine Ketones Negative Urine Blood Negative Urine Nitrate Positive H Urine Bilirubin Negative Urine Urobilinogen 0.2 Ur Leukocyte Esterase Large H Urine RBC 0 - 2 Urine WBC 5 - 10 Ur Epithelial Cells 1 - 3 Urine Bacteria Many Salicylates Acetaminophen Alcohol, Quantitative - EKG Data EKG Interpreted by: ER Physician DSM Plan - DSM 5 DSM 5 Diagnosis: MDD severe with no psychosis Rule out PTSD - Recommended/Plan of Treatment Treatment Recommendations and Plan of Treatment: Milieu/structure/supportive therapy Medical consult will be called for urinary tract infection and ECT clearance Cardiology will be called for a ECT clearance Benzodiazepines will be not resumed Remeron7.5 mg at the nighttime for insomnia and depression ECT for Tuesday if pt will be medically cleared SW consultation for discharge plan and social issues Family involvement Follow up on labs Will monitor closely Pt was educated about risk/benefits and alternatives of medications, coping strategies (safety plan, suicide prevention), relapse prevention, importance of follow up with psychiatrist and therapist, stay away from drugs/alcohol/smoking Projected ELOS: 7days Prognosis: fair Discharge Plan and Discharge Criteria: Pt will be not depressed or manic, will be more hopeful, will be not psychotic or anxious, will be not having thoughts of harming self or others, will be tolerating medications well, will not have major side effects, will be able to function, will not pose threat to self or others. - Tobacco Cessation Tobacco Use Status for the last 30 days: Light User(<=4 cigs daily, cigar/pipes not daily,or smokeless tobacco) Tobacco Use Treatment Practical Counseling Provided: No Reason for not providing: does not meet criteria Tobacco Use Treatment FDA-Approved Cessation Medication Provided: No - Alcohol or Substance Abuse Does the patient have an Alcohol or Substance Abuse Disorder: No Initial Psych Certification - Initial Certification I certify that the inpatient psychiatric facility admission was medically necessary for either: Treatment which could reasonbly be expected to improve pt's condition I estimate of hospitalization is necessary for proper treatment of the patient: 7 Unit of Time: Days My plans for post-hospital care for this patient are: ECT f/u with outpatient psychiatrist
--- NOTE | 2018-07-07 20:29 | CON ---
DATE: 07/07/2018 HISTORY OF PRESENT ILLNESS: The patient is 82 years old who came to emergency room because of worsening depression. The patient says she follows with Dr. Green, but she does not feel well on current medication. She says she has taken Luvox in the past with no result, but Dr. Green does not seem to be interested to give her those medications. He started on recently for her depression. The patient states she has struggled with depression all her life, but lately she has been having suicidal thoughts. Other than that she has no history of nausea, vomiting, or diarrhea. No chest pain, no shortness of breath. PAST MEDICAL HISTORY: Significant for: 1. Hypertension. 2. History of mitral valve prolapse. 3. History of DVT. 4. She does have history of migraine headache. 5. History of gastroesophageal reflux disease. SOCIAL HISTORY: She said she is single. She was long time ago, however, she raised four children. She used to work in computer. She lives alone, however, she has her son and the daughter in the same apartment complex. Denies smoking; light smoking in the past. Socially drinks here and there. PAST SURGICAL HISTORY: She did have right hip replacement. ALLERGIES: SHE IS NOT ALLERGIC TO ANY MEDICATION. MEDICATION AT HOME: She is on bupropion 300 daily, Effexor 37.5 daily, metoprolol 50 mg daily, Klonopin 0.5 twice a day, Abilify 5 mg at bedtime, and Xanax 0.5 b.i.d. PHYSICAL EXAMINATION GENERAL: She is awake, alert, oriented, communicative. VITAL SIGNS: She is afebrile, pulse 87, respirations 20, blood pressure 157/88. LUNGS: Bilateral good airflow. No rhonchi or crackle. HEART: S1, S2 audible. ABDOMEN: Soft, nontender. No rebound. No guarding. NEUROLOGICAL: The patient is awake, alert, oriented, communicative, ambulatory with a walker. LABORATORY EXAMINATION: WBC 10.8, hemoglobin 14, hematocrit 44, platelets 263. Chemistry; sodium 138, potassium 4.2, chloride 105, CO2 of 28, BUN 18, creatinine 1, blood sugar 115. Cholesterol 227, LDL 164. Urine shows positive nitrite and large leukocyte. Urine tox is negative. X-ray chest is unremarkable. EKG shows normal sinus rhythm, left ventricular hypertrophy with repolarization. ASSESSMENT: 1. Severe depression. 2. Suicidal thoughts. 3. Hypertension. 4. Hyperlipidemia. 5. Anxiety disorder. PLAN: We will start her on her usual blood pressure medication. Monitor her blood sugar. Psych medication will be adjusted by psychiatrist. We will follow up urine culture. In the meantime, we can continue her on Rocephin, and once the culture is back, we might switch it to p.o. antibiotic. We will follow up the patient in a.m. Belem Mahmood MD
--- NOTE | 2018-07-07 22:39 | CON ---
DATE OF CONSULTATION: 07/07/2018 LOCATION: The patient is in psychiatric floor, room 519, bed 1. REASON FOR CONSULTATION: Hypertension, cardiac risk stratification for possible ECT treatment, depression, suicidal thoughts. HISTORY OF PRESENT ILLNESS: An 82-year-old female who is known to have hypertension. She says in the past, once she was told that she has mitral valve prolapse; however, the patient's echo on 11/17/2017 did not show the mitral valve prolapse. The patient remitted with depression and suicidal thoughts. The patient denies any chest pain, shortness of breath, or palpitation. PAST MEDICAL AND SURGICAL HISTORY: The patient's past history is positive for hypertension, history of fall, arthritis, right hip replacement, migraine headache, also had cholecystectomy in the past. SOCIAL HISTORY: Denies smoking. Denies drinking. ALLERGIES: THE PATIENT DENIES ANY ALLERGIES. LIST OF HOME MEDICATIONS: The patient was on Xanax 0.5 mg b.i.d., aripiprazole 5 mg p.o. at bedtime, Klonopin 0.5 mg p.o. b.i.d., metoprolol tartrate 50 mg p.o. daily, Effexor 37.5 mg p.o. daily, Wellbutrin XL 300 mg p.o. daily. REVIEW OF SYSTEMS: All the systems were reviewed, positive as mentioned in the history, otherwise, negative. PHYSICAL EXAMINATION VITAL SIGNS: Blood pressure 157/88, respiration is 20, pulse 87, temperature 98.3. HEENT: Head is normocephalic. Eyes, pupils normal. Conjunctivae normal. Nose and throat, normal. NECK: JVP low. Carotids equal. THORAX: AP diameter normal. LUNGS: Clear. CARDIOVASCULAR: S1 and S2, systolic murmur. No rub. ABDOMEN: Soft. No tenderness. No organomegaly. Bowel sounds normal. EXTREMITIES: No clubbing. No cyanosis. LABORATORY DATA: WBC 10.8, hemoglobin 14.4, hematocrit 44.1. Sodium 138, potassium 4.2, BUN 18, creatinine 1.0. AST, ALT normal. Cholesterol 227, LDL 164. TSH 3.20. Chest x-ray: No acute pulmonary disease. EKG showed regular sinus rhythm, nonspecific STT changes, high voltage suggestive of LVH. The patient had an echocardiogram on 11/17/2017, showed normal size LV, mild left ventricular hypertrophy, ejection fraction slightly reduced to 45%, [id number] aortic stenosis, moderate mitral regurg, [id number] tricuspid regurg, trace aortic regurg, RVSP 50 mmHg suggestive of mild pulmonary hypertension. DIAGNOSES: Hypertension, [id number] aortic stenosis, left ventricular systolic function very slightly decreased to ejection fraction of 45%, mild pulmonary hypertension, moderate mitral regurgitation, [id number] tricuspid regurgitation, depression, suicidal ideas. PLAN: From cardiac point of view, the patient can go ahead with ECT treatment. There is no absolute contraindication. The patient can go as a moderate risk. Clinically, the patient's cardiac status is stable. The patient's blood pressure is elevated. We will increase the metoprolol to 50 mg b.i.d. and monitor blood pressure. The patient is on ceftriaxone 1 g IV daily. Atorvastatin 10 mg p.o. daily has been already started. We will continue present therapy, and we will follow with you. Antoinette Sharp MD
[2018-07-08] MEDS ORDERED: cefTRIAXone 1 gm 1 GM/100 ML BAG IVPB SCH (08:00)
--- NOTE | 2018-07-08 09:55 | PCM.PYCHPN ---
Psychiatric Progress Note - Psychiatric Progress Note Patient seen today, length of contact: 25 min Problems Identified/Issues Discussed: I reviewed assessment and met with patient at bedside. Grooming is fair and patient is oriented to month, year, location and circumstances. Focus is fair and she appears cooperative and engaged with my questioning. Patient confirms that she has been very depressed and feels "maybe a little improved" since arriving on the unit, indicates that the medications "are sort of helping me a little". She is strongly considering ECT because she wants to enjoy life again and feels that current bout of depression is her most severe. Patient denies any new discomfort or pain. Patient has been calm and visible on the unit and generally keeps a low profile. There have been no behavioral issues thus far. Diagnostic Results: MDD severe with no psychosis Rule out PTSD Mental Status Examination - Cognitive Function Orientation: Person, Place, Situation, Time - Mood Mood: Depressed - Affect Affect: Flat - Formal Thought Process Formal Thought Process: No Impairment - Homicidal Ideation Homicidal Ideation: No Goal/Treatment Plan - Goal/Treatment Plan Progress Toward Problem(s) and Goals/Treatment Plan: * c/w current tx and plan * Patient is scheduled for ECT on 07/10/18 pending medical clearance * Vitals reviewed and noted below: Selected Entries 07/07/18 07/07/18 07/07/18 07:10 08:53 16:00 Temperature 98.3 F Pulse Rate 87 87 75 Respiratory 20 Rate Blood Pressure 157/88 H 157/88 H 115/59 L 07/07/18 20:40 Temperature Pulse Rate 67 Respiratory 20 Rate Blood Pressure 116/76 * No new weekend lab results thus far
[2018-07-08] MEDS: Cefpodoxime (Vantin) 100 mg Tab PO SCH (23:19)
--- NOTE | 2018-07-08 23:35 | PN ---
DATE: 07/08/2018 SUBJECTIVE: The patient is 82 years old, seen and examined, feels little bit better, gets anxious at times. PHYSICAL EXAMINATION: VITAL SIGNS: She is afebrile, pulse 62, respirations 20, and blood pressure 108/50. LUNGS: Bilateral fair airflow. No rhonchi or crackles. HEART: S1 and S2 audible. ABDOMEN: Soft, nontender. No rebound, no guarding. NEUROLOGIC: The patient is awake, alert, and oriented, communicative, ambulatory with the walker. LABORATORY DATA: Urine tox is negative. Blood cultures show E. coli that is resistant to Cipro. ASSESSMENT: 1. Anxiety disorder. 2. History of major depression. 3. Escherichia coli urinary tract infection. 4. Hyperlipidemia. PLAN: I will discontinue Cipro. Start her on Vantin. She has been started on statins. We will continue metoprolol. Psych medications being adjusted by psychiatrist. She is getting ready for ECT. We will follow this patient in a.m. Belem Mahmood MD
[2018-07-09] MEDS: Cefpodoxime (Vantin) 100 mg Tab PO SCH ×2 (06:27→17:12)
--- NOTE | 2018-07-09 10:04 | PCM.PYCHPN ---
Psychiatric Progress Note - Psychiatric Progress Note Patient seen today, length of contact: 25 min Problems Identified/Issues Discussed: I reviewed assessment and met with patient at bedside. Grooming is fair and patient is oriented to month, year, location and circumstances. Focus is fair and she appears cooperative and engaged with my questioning. Patient confirms that she has been very depressed and feels "maybe a little improved" since arriving on the unit, indicates that the medications "are sort of helping me a little". She is strongly considering ECT because she wants to enjoy life again and feels that current bout of depression is her most severe. Patient denies any new discomfort or pain. Patient has been calm and visible on the unit and generally keeps a low profile. There have been no behavioral issues thus far. 07/08/18 12:05 - Psych B.I.R.P - Nursing by Naveed Powell [facility] Num: [id number] : 1935 Patient Age: 82 B:Received patient in her room,asleep,patient skipped breakfast,got up about 09:30 am,patient came out alert and oriented x3,pleasant and cooperative,patient asked for anxiety medication (Xanax),denies s/h ideation,contracted for safety,denies any type of hallucinations,uses a walker to ambulate. I: Provided support,treated with respect and dignity,encouraged to stay focused,to work together with the staff in finding positive alternatives to help deal with life stresses and life style,encouraged to attend therapeutic groups,to eat properly and drink plenty of fluids,to call for assistance as needed,walker to prevent fall and has alarm # 4 which she can use for assistance . R: Behavior controlled,seen by physical therapist,observed patient on the phone to communicate with her relatives. P: Continue monitoring her behavior and safety. Initialized on 07/08/18 12:05 - END OF NOTE 07/08/18 03:22 - Psych B.I.R.P - Nursing by Salena Griggs [facility] Num: [id number] : 1935 Patient Age: 82 B: PT IS AAOX3, AMBULATORY IN STEADY GAIT.. VERY PLEASANT AND INTELLECTUALLY SHARP AT HER AGE.. -NO SIGNS OF CONFUSION.. THOUGH SHE CLAIMS SHE ALWAYS FEELS DEPRESSED, SHE DOESN'T SHOWS IN DEPRESSION MOOD, AT PRESENT.. CLAIMS SHE WILL BE DEPRESSED ON AND OFF WITH NO REASON AT ALL SINCE AGE 18 YRS.. -SHE DENIES SUICIDAL IDEATION, NO PARANOIA.. I: -COPING SKILLS AND STRATEGIES WERE PROVIDED.. R: -PT IS COOPERATIVE, HIGHLY MOTIVATED TO SUBMIT FOR ECT PROCEDURE.. -SHE SPENT THE NIGHT READING HER BIBLE.. - FOR HS MEDS SHE IS COMPLIANT AND AGREE TO TRY REMERON, SINCE SHE NOTICED HER XANAX WAS REDUCED TO HALF A DOSE.. -SHE SLEPT SOON AFTER HER XANAX AND REMERON .. P: SAFETY ROUNDS AND FALL PRECAUTION IMPLEMENTED.. WEARS THOSE CALL [place].. 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 Mahmood on 07/08/18~discontinued Cipro and started Vantin * Patient is scheduled for ECT on 07/10/18 pending medical clearance * Vitals reviewed and noted below: 07/08/18 07/08/18 07/08/18 07:00 10:40 16:58 Temperature 97.3 F L Pulse Rate 62 102 H 70 Respiratory 20 Rate Blood Pressure 108/50 L 171/96 H 150/86 * No new weekend lab results thus far
--- NOTE | 2018-07-09 21:32 | PN ---
DATE: 07/09/2018 SUBJECTIVE: The patient is 82-year-old, seen and examined, walking around with a walker, being scheduled for ECT, little apprehensive about it, has a lot of questions. For that, she was referred to psychiatrist. PHYSICAL EXAMINATION VITAL SIGNS: She is afebrile, pulse 60, respirations 22, blood pressure 140/71. LUNGS: Bilateral fair airflow. No rhonchi or crackle. HEART: S1 and S2 audible. ABDOMEN: Soft, nontender. No rebound. No guarding. NEUROLOGICAL: She is awake, alert, oriented, communicative, ambulatory. Ambulates with a walker. LABORATORY EXAM: Her urinalysis is positive for E. coli that is sensitive to penicillins. Since the patient does not have IV access, she has been started on Vantin. ASSESSMENT: 1. Major depression. 2. Hypertension. 3. Hyperlipidemia. 4. Escherichia coli urinary tract infection. PLAN: We will continue the patient on statins. Currently, she is on metoprolol, and she is on Vantin. We will repeat her urinalysis in 7 days, and she is medically stable to go for ECT. Belem Mahmood MD
[2018-07-10] MEDS: Cefpodoxime (Vantin) 100 mg Tab PO SCH ×2 (06:46→17:24)
--- NOTE | 2018-07-10 15:50 | PCM.PYCHPN ---
Psychiatric Progress Note - Psychiatric Progress Note Patient seen today, length of contact: 30min Patient Chief Complaint: "I thought about ECT over the weekend, I want to have it, but my daughter wants to speak to you...' Problems Identified/Issues Discussed: ECT risk/benefits and alternatives, suicide/ homicide prevention, past psychiatric h/o, current psychiatric symptoms, medical problems, risk/benefits and alternatives of medications, medications compliance, coping strategies, substance abuse h/o, relapse prevention, importance of follow up with psychiatrist and therapist, discharge plan. Medical Problems: pt is relatively healthy h/o HTN h/o falls Diagnostic Results: 07/06/18 13:05 07/06/18 13:05 Lab Results 07/07/18 08:10: RPR Nonreactive 07/07/18 08:10: Free T4 0.96, TSH 3rd Generation 2.37 07/07/18 08:10: Fasting Glucose 97, Triglycerides 86, Cholesterol 227 H, LDL Cholesterol Direct 164 H, HDL Cholesterol 56 07/06/18 14:50: Urine Color Light yellow, Urine Appearance Sl cloudy, Urine pH 7.0, Ur Specific [place] <= 1.005, Urine Protein Negative, Urine Glucose (UA) Negative, Urine Ketones Negative, Urine Blood Negative, Urine Nitrate Positive H , Urine Bilirubin Negative, Urine Urobilinogen 0.2, Ur Leukocyte Esterase Large H, Urine RBC 0 - 2, Urine WBC 5 - 10, Ur Epithelial Cells 1 - 3, Urine Bacteria Many 07/06/18 13:05: Sodium 138, Potassium 4.2, Chloride 105, Carbon Dioxide 28, Anion Gap 9 L, BUN 18, Creatinine 1.0, Est GFR ( Amer) > 60, Est GFR (N on-Af Amer) 53, Random Glucose 115 H, Calcium 9.6, Total Bilirubin 0.5, AST 21, ALT 17, Alkaline Phosphatase 63, Total Protein 7.8, Albumin 4.1, Globulin 3.7, Albumin/Globulin Ratio 1.1 07/06/18 13:05: Free T4 0.95, TSH 3rd Generation 3.20, Alcohol, Quantitative < 10 07/06/18 13:05: Salicylates < 1 L, Acetaminophen < 10.0 L 07/06/18 13:05: WBC 10.8, RBC 4.64, Hgb 14.4, Hct 44.1, MCV 95.0, MCH 31.0, MCHC 32.7, RDW 13.6, Plt Count 263, MPV 10.0, Gran % 71.5 H, Lymph % (Auto) 20.8 L, Person % (Auto) 6.8 H, Eos % (Auto) 0.7 L, Baso % (Auto) 0.2, Gran # 7.75 H, Lymph # (Auto) 2.3, Person # (Auto) 0.7 H, Eos # (Auto) 0.1, Baso # (Auto) 0.02 Vital Signs Temp Pulse Resp BP Pulse Ox 07/10/18 09:24 56 L 97/62 L 07/10/18 06:45 98.2 F 56 L 20 97/62 L 07/09/18 17:11 69 120/63 07/09/18 09:13 60 140/71 07/09/18 07:00 98.2 F 60 22 140/71 07/08/18 16:58 70 150/86 07/08/18 10:40 102 H 171/96 H 07/08/18 07:00 97.3 F L 62 20 108/50 L 07/08/18 06:59 97.3 F L 62 22 108/50 L 07/07/18 20:40 67 20 116/76 07/07/18 16:00 75 115/59 L 07/07/18 08:53 87 157/88 H 07/07/18 07:10 98.3 F 87 20 157/88 H 07/06/18 18:00 18 07/06/18 16:35 98.2 F 81 18 158/70 H 97 07/06/18 15:00 90 18 168/78 H 96 07/06/18 12:43 98.0 F 97 H 18 176/89 H 97 DSM 5 Symptoms Update: Shortly the patient is a 82-year old female with a 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 Patient requires further evaluation and stabilization and medication adjustments. last week pt was educated about medications options as well as the ECT procedure, pt expressed her interest of having ECT. th Patient was seen today at the treatment team meeting room, pt's daughter Hannah Cutler [phone] requested to speak to this journalists and other writers, pt signed consent for collaterals. SW, patient, medical student and this journalists and other writers had conference call with pt's daughter Hannah. Hannah was upset and initially was saying that her mother is "addicted to xanax with you", from the record pt took only 3 pills since Tuesday, pt did not exhibit any med seeking behavior, when educated about that, Hannah still convinced, then Hannah was accusing her mother of "drinking and smoking', (pt said that she is having one drink a night, smokes about two cigarettes a day), Hannah also was making request for this journalists and other writers to speak to pt's PMD "because you do not know my mother, you don't know anything about her" (pt was seen by and for medical and government clerk clearance, pt was considered to be a good candidate for ECT). Hannah seemed to have strong opinion about ECT treatment, this journalists and other writers is not sure what literature she is reading because she was going on and on abut manufactures being sued, this journalists and other writers tried to educate pt's daughter, but she was abrupt, did not let this journalists and other writers or pt to speak, by the end of the conversation Hannah threatened her mother "if you will have ECT, I want you to remove me from being your POA", as per patient POA was made about "20 years ago". then pt's daughter accused hospital and this journalists and other writers for "financial interest in my mother", after that this journalists and other writers could not continue conversation in such tone and it was terminated. pt appeared to be anxious, said "I hope you will not kick me out because of my daughter", this journalists and other writers assured pt that she will be continued treatment and hope that she will make right decision for herself. pt did not want her daughter to be involved any longer. this journalists and other writers asked if her son (who lives with pt) willing to come and have a family meeting, pt agreed, pt's son will come tomorrow. left this journalists and other writers a message, this journalists and other writers had prolong conversation with PMD. [phone] as per PMD pt suffers from depression "for years, she is a classical patient with long and treatment resistant depression", pt was seeing multiple psychiatrists in the past, pt was offered ECT in the past as well. from the [facility] stand point pt is "healthy", PMD did not have any contraindication for ECT, pt's daughter visited PMD today and was very upset, assured pt's daughter that pt has no major contraindication for ECT treatment. PMD even suggested to visit pt on the unit if she needs to, off note does not have privileges here. Collaterals appreciated. going back to pt's presentation pt said "only I know the way I feel, I want my life back, I am in right stage of mind, I want to have ECT, this is my decision, I love my daughter, but I am the one who makes decision for myself". pt has capacity to indicate her preferences, pt has insight and appreciation, pt was able to process the information about ECT risk/benefits and alternatives, pt is not suicidal or psychotic, alert and oriented. pt is able to make medical decisions now. Over the weekend pt express her desire to have ECT to as well. Patient has been calm and visible on the unit and generally keeps a low profile. There have been no behavioral issues thus far. 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 Rule out PTSD Medication Change: No (pt might have ECT tomorrow) Medical Record Reviewed: Yes Consults ordered or reviewed: cleared pt for ECT cleared pt for ECT consulted with over the phone, pt has no major contraindications for ECT Mental Status Examination - Cognitive Function Orientation: Person, Place, Situation, Time Memory: Intact Attention: Poor (improvement) Concentration: Poor Association: WNL Fund of Knowledge: WNL - Mood Mood: Depressed ("only I know the way I feel, I feel very depressed") - Affect Affect: Flat - Formal Thought Process Formal Thought Process: No Impairment - Suicidal Ideation Suicidal Ideation: No - Homicidal Ideation Homicidal Ideation: No Goal/Treatment Plan - Goal/Treatment Plan Need for Continued Stay: Remain at risks for inpatient hospitalization, Severe depression anxiety, Discharge may exacerbated symptoms, Severe functional impairment Progress Toward Problem(s) and Goals/Treatment Plan: Milieu/structure/supportive therapy Medical consult will be called for urinary tract infection and ECT clearance Cardiology will be called for a ECT clearance Benzodiazepines 0.25tid prn for anxiety Remeron7.5 mg at the nighttime for insomnia and depression ECT for Tuesday after a family meeting SW consultation for discharge plan and social issues Family involvement Follow up on labs Will monitor closely Pt was educated about risk/benefits and alternatives of medications, coping strategies (safety plan, suicide prevention), relapse prevention, importance of follow up with psychiatrist and therapist, stay away from drugs/alcohol/smoking it took more than 45min of pt's time to manage this pt Estimated Date of D/C: 07/14/18
--- NOTE | 2018-07-10 20:37 | PN ---
DATE: 07/10/2018 SUBJECTIVE: The patient is 82-year-old, seen and examined, doing well, anxious about her ECT, reading her novel. She states she is a little anxious. PHYSICAL EXAMINATION VITAL SIGNS: She is afebrile, pulse 68, respirations 20, blood pressure 107/62. LUNGS: Bilateral fair airflow. No rhonchi or crackle. HEART: S1 and S2 audible. ABDOMEN: Soft, nontender. No rebound. No guarding. NEUROLOGICAL: The patient is awake, alert, oriented, able to communicate. LABORATORY EXAM: There is no new labs available today. ASSESSMENT: 1. Major depression. 2. Hyperlipidemia. 3. Hypertension. 4. Anxiety disorder. PLAN: We will continue current medication. She is being prepped for ECT. Belem Mahmood MD
--- NOTE | 2018-07-10 20:49 | PN ---
DATE: 07/10/2018 SEX OF THE PATIENT: Female. AGE OF THE PATIENT: 82. TYPE OF DICTATION: Progress note. REFERRING PHYSICIAN: REASON FOR CONSULTATION: Followup, cardiac evaluation for possible ECT, admitted to the psych floor with depression and suicidal ideation. SUBJECTIVE: The patient denies any chest pain, shortness of breath, or any palpitations. OBJECTIVE: GENERAL: Not in apparent distress. PHYSICAL EXAMINATION: As follows: VITAL SIGNS: Temperature afebrile, heart rate 56, and blood pressure 120/63. HEENT: PERRLA. Extraocular muscles intact. NECK: Supple. No carotid bruit. No thyromegaly. CHEST: Clear to auscultation. HEART: S1 and S2 are regular. ABDOMEN: Soft. EXTREMITIES: Clubbing and cyanosis negative. LABORATORY DATA: Blood workup as follows: WBC 10.8, hemoglobin 14.4, hematocrit 44.1, and platelet count 263. Chemistry shows sodium 130, potassium 4.2, chloride 105, carbon dioxide 28, anion gap of 9, BUN 18, and creatinine 1. TSH 2.37. Total cholesterol 227, LDL 164, HDL 56. IMPRESSION: An 82-year-old female with past medical history significant for hypertension, arthritis, right hip placement, migraine, history of cholecystectomy in the past. Admitted with suicidal ideation and depression. The patient's last echocardiogram showed ejection fraction of 45%, mild pulmonary hypertension, moderate mitral regurgitation, [id number] tricuspid regurgitation. The patient had suicidal ideation. The patient has no evidence of ischemia or congestive heart failure or angina symptoms. We will clear the patient to go for electroconvulsive therapy with a moderate risk because of underlying comorbidity. No absolute contraindication. We will follow with you. Thank you Dr. Lopez for providing us the opportunity in taking care of the patient, Johnathan Simons. We will follow with you. Interim, continue atorvastatin, continue metoprolol. We will follow with you. Antoinette Shelton MD
[2018-07-11] MEDS: Cefpodoxime (Vantin) 100 mg Tab PO SCH ×2 (06:08→17:50)
--- NOTE | 2018-07-11 14:21 | PCM.PYCHPN ---
Psychiatric Progress Note - Psychiatric Progress Note Patient seen today, length of contact: 30min Patient Chief Complaint: "I will take effexor for now" Problems Identified/Issues Discussed: ECT risk/benefits and alternatives, suicide/ homicide prevention, past psychiatric h/o, current psychiatric symptoms, medical problems, risk/benefits and alternatives of medications, medications compliance, coping strategies, substance abuse h/o, relapse prevention, importance of follow up with psychiatrist and therapist, discharge plan. Medical Problems: pt is relatively healthy h/o HTN h/o falls Diagnostic Results: 07/06/18 13:05 07/06/18 13:05 Lab Results 07/07/18 08:10: RPR Nonreactive 07/07/18 08:10: Free T4 0.96, TSH 3rd Generation 2.37 07/07/18 08:10: Fasting Glucose 97, Triglycerides 86, Cholesterol 227 H, LDL Cholesterol Direct 164 H, HDL Cholesterol 56 07/06/18 14:50: Urine Color Light yellow, Urine Appearance Sl cloudy, Urine pH 7.0, Ur Specific [place] <= 1.005, Urine Protein Negative, Urine Glucose (UA) Negative, Urine Ketones Negative, Urine Blood Negative, Urine Nitrate Positive H , Urine Bilirubin Negative, Urine Urobilinogen 0.2, Ur Leukocyte Esterase Large H, Urine RBC 0 - 2, Urine WBC 5 - 10, Ur Epithelial Cells 1 - 3, Urine Bacteria Many 07/06/18 13:05: Sodium 138, Potassium 4.2, Chloride 105, Carbon Dioxide 28, Anion Gap 9 L, BUN 18, Creatinine 1.0, Est GFR ( Amer) > 60, Est GFR (Non-Af Amer) 53, Random Glucose 115 H, Calcium 9.6, Total Bilirubin 0.5, AST 21, ALT 17, Alkaline Phosphatase 63, Total Protein 7.8, Albumin 4.1, Globulin 3.7, Albumin/Globulin Ratio 1.1 07/06/18 13:05: Free T4 0.95, TSH 3rd Generation 3.20, Alcohol, Quantitative < 10 07/06/18 13:05: Salicylates < 1 L, Acetaminophen < 10.0 L 07/06/18 13:05: WBC 10.8, RBC 4.64, Hgb 14.4, Hct 44.1, MCV 95.0, MCH 31.0, MCHC 32.7, RDW 13.6, Plt Count 263, MPV 10.0, Gran % 71.5 H, Lymph % (Auto) 20.8 L, [place] % (Auto) 6.8 H, Eos % (Auto) 0.7 L, Baso % (Auto) 0.2, Gran # 7.75 H, Lymph # (Auto) 2.3, [place] # (Auto) 0.7 H, Eos # (Auto) 0.1, Baso # (Auto) 0.02 Vital Signs Temp Pulse Resp BP Pulse Ox 07/10/18 09:24 56 L 97/62 L 07/10/18 06:45 98.2 F 56 L 20 97/62 L 07/09/18 17:11 69 120/63 07/09/18 09:13 60 140/71 07/09/18 07:00 98.2 F 60 22 140/71 07/08/18 16:58 70 150/86 07/08/18 10:40 102 H 171/96 H 07/08/18 07:00 97.3 F L 62 20 108/50 L 07/08/18 06:59 97.3 F L 62 22 108/50 L 07/07/18 20:40 67 20 116/76 07/07/18 16:00 75 115/59 L 07/07/18 08:53 87 157/88 H 07/07/18 07:10 98.3 F 87 20 157/88 H 07/06/18 18:00 18 07/06/18 16:35 98.2 F 81 18 158/70 H 97 07/06/18 15:00 90 18 168/78 H 96 07/06/18 12:43 98.0 F 97 H 18 176/89 H 97 DSM 5 Symptoms Update: Shortly the patient is a 82-year old female with a 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 Patient requires further evaluation and stabilization and medication adjustments. last week pt was educated about medications options as well as the ECT procedure, pt expressed her interest of having ECT. pt's family wanted to have a meeting to discuss the treatment option. 07/10/18 pt's Daughter Hannah was upset and totally disagreed with pt's decision of ECT treatment. Please see 07/10/18 notes for more detailed information. pt is willing to have a family meeting with both her son Carlo and her daughter Hannah today 07/11/18. pt and both of her kids were educated about treatment options, pt was educated about the option of being on medications (effexor which family members had good response in the past), ECT treatment as well. pt's daughter was irritable, interrupting this com writer, was on defensive mode, son seems to be more reasonable. pt made it clear that "it is my choice, I want to have an ECT". this com writer has impression that pt's family as well as pt needs to have discussion in private and let this com writer know about decision. Later on pt was followed up, pt said that at present moment she would like to try effexor and see how she would feel. effexor was started. pt said the she feels "little better", reported her mood is still depressed, but denied that she has thoughts of harming self or others. 07/10/18 left this com writer a message, this com writer had prolong conversation with PMD. [phone] as per PMD pt suffers from depression "for years, she is a classical patient with long and treatment resistant depression", pt was seeing multiple psychiatrists in the past, pt was offered ECT in the past as well. from the medical stand point pt is "healthy", PMD did not have any contraindication for ECT, pt's daughter visited PMD today and was very upset, assured pt's daughter that pt has no major contraindication for ECT treatment. PMD even suggested to visit pt on the unit if she needs to, off note does not have privileges here. Collaterals appreciated. Over the weekend pt express her desire to have ECT to as well. Patient has been calm and visible on the unit and generally keeps a low profile. There have been no behavioral issues thus far. ECT postponed. Impression: DSM 5 Diagnosis: Medication Change: Yes (effexor) Medical Record Reviewed: Yes Consults ordered or reviewed: cleared pt for ECT cleared pt for ECT consulted with over the phone, pt has no major contraindications for ECT Mental Status Examination - Cognitive Function Orientation: Person, Place, Situation, Time Memory: Intact Attention: Poor (improvement) Concentration: Poor Association: WNL Fund of Knowledge: WNL - Mood Mood: Depressed ("only I know the way I feel, I feel very depressed") - Affect Affect: Flat - Formal Thought Process Formal Thought Process: No Impairment - Suicidal Ideation Suicidal Ideation: No - Homicidal Ideation Homicidal Ideation: No Goal/Treatment Plan - Goal/Treatment Plan Need for Continued Stay: Remain at risks for inpatient hospitalization, Severe depression anxiety, Discharge may exacerbated symptoms, Severe functional impairment Progress Toward Problem(s) and Goals/Treatment Plan: Milieu/structure/supportive therapy Medical consult will be called for urinary tract infection and ECT clearance Cardiology will be called for a ECT clearance xanax 0.25tid prn for anxiety Remeron7.5 mg at the nighttime for insomnia and depression effexor 37.5mg daily for depression/anxiety ECT will be postponed SW consultation for discharge plan and social issues Family involvement Follow up on labs Will monitor closely Pt was educated about risk/benefits and alternatives of medications, coping strategies (safety plan, suicide prevention), relapse prevention, importance of follow up with psychiatrist and therapist, stay away from drugs/alcohol/smoking it took more than 45min of pt's time to manage this pt Estimated Date of D/C: 07/17/18
--- NOTE | 2018-07-11 14:51 | PN ---
DATE: 07/11/2018 SEX OF THE PATIENT: Female. AGE OF THE PATIENT: 82. TYPE OF DICTATION: Progress note. DICTATING PHYSICIAN: Dr. Nikita Curry. REFERRING PHYSICIAN: Dr. Vidhi Lopez REASON FOR CONSULTATION: Cardiac evaluation for possible ECT, admit to psych floor depression and saddle agitation. The patient denies any chest pain, shortness of breath, any palpitation he feels okay, little bit nervous about for ECT. PHYSICAL EXAMINATION VITAL SIGNS: Temperature afebrile, heart rate 111, blood pressure 177/103. HEENT: PERRLA intact. NECK: Supple. No carotid bruit. No thyromegaly. CHEST: Clear to auscultation. HEART: S1, S2 regular. ABDOMEN: Soft. EXTREMITIES: Clubbing, cyanosis negative. LABORATORY DATA: Blood workup WBC 10.8, hemoglobin 14.4, hematocrit 44.1, platelet count 263. Chemistry shows sodium as of 07/06, 130, potassium 4.0, chloride 105, 28, anion gap 9, BUN 18, creatinine 1.0. IMPRESSION: An 82-year-old female with past medical history significant for severe depression admitted with saddle agitation to the psych floor. History of right hip replacement, arthritis, migraine, history of cholecystectomy in the past. Most recent echo, ejection fraction 45%. Mild hypertension. [id number] tricuspid regurgitation. The patient has a suicidal agitation and scheduled for ECT. No absolute contraindication. No evidence of ischemia. No evidence of erythema. The patient is cleared to go for ECT. We will follow with you. No absolute contraindication. No evidence of ischemia. No evidence of erythema. The patient is cleared to go for ECT. We will follow with you. We will put p.r.n. hydralazine for blood pressure most likely secondary to apprehension. Continue metoprolol 50 mg p.o. twice daily. We will put p.r.n. for systolic blood pressure more than 170. Thank you Dr. Lopez for providing us the opportunity in taking care of the patient. Antoinette Shelton MD [facility] # [id number]
--- NOTE | 2018-07-11 19:20 | PN ---
DATE: 07/11/2018 SUBJECTIVE: The patient is 82-year-old, seen and examined, lying in bed, seems to be comfortable, reading her novel, and the patient said she discussed with her daughter, they are not in favor of ECT, they want to maximize the medical treatment. If that did not work, then she will think of ECT; otherwise, she is doing well. PHYSICAL EXAMINATION VITAL SIGNS: She is afebrile, pulse 67, respirations 16, blood pressure 136/78. LUNGS: Bilateral fair airflow. No rhonchi or crackle. HEART: S1 and S2 audible. ABDOMEN: Soft, nontender. No rebound. No guarding. NEUROLOGICAL: The patient is awake, alert, oriented, communicative. ASSESSMENT: 1. Hypertension. 2. Hyperlipidemia. 3. History of major depression. 4. Generalized osteoarthritis. 5. History of migraine headaches. PLAN: Cardiology input noted and appreciated. The patient is clear for ECT. We will talk to the psychiatrist. Belem Mahmood MD
[2018-07-12] MEDS: Cefpodoxime (Vantin) 100 mg Tab PO SCH ×2 (06:10→17:17)
--- NOTE | 2018-07-12 15:06 | PCM.PYCHPN ---
Psychiatric Progress Note - Psychiatric Progress Note Patient seen today, length of contact: 30min Patient Chief Complaint: "I will take effexor for now, but I feel very dizzy and anxious" Problems Identified/Issues Discussed: ECT risk/benefits and alternatives, suicide/ homicide prevention, past psychiatric h/o, current psychiatric symptoms, medical problems, risk/benefits and alternatives of medications, medications compliance, coping strategies, substance abuse h/o, relapse prevention, importance of follow up with psychiatrist and therapist, discharge plan. Medical Problems: pt is relatively healthy h/o HTN h/o falls Diagnostic Results: 07/06/18 13:05 07/06/18 13:05 Lab Results 07/07/18 08:10: RPR Nonreactive 07/07/18 08:10: Free T4 0.96, TSH 3rd Generation 2.37 07/07/18 08:10: Fasting Glucose 97, Triglycerides 86, Cholesterol 227 H, LDL Cholesterol Direct 164 H, HDL Cholesterol 56 07/06/18 14:50: Urine Color Light yellow, Urine Appearance Sl cloudy, Urine pH 7.0, Ur Specific [place] <= 1.005, Urine Protein Negative, Urine Glucose (UA) Negative, Urine Ketones Negative, Urine Blood Negative, Urine Nitrate Positive H , Urine Bilirubin Negative, Urine Urobilinogen 0.2, Ur Leukocyte Esterase Large H, Urine RBC 0 - 2, Urine WBC 5 - 10, Ur Epithelial Cells 1 - 3, Urine Bacteria Many 07/06/18 13:05: Sodium 138, Potassium 4.2, Chloride 105, Carbon Dioxide 28, Anion Gap 9 L, BUN 18, Creatinine 1.0, Est GFR ( Amer) > 60, Est GFR (Non-Af Amer) 53, Random Glucose 115 H, Calcium 9.6, Total Bilirubin 0.5, AST 21, ALT 17, Alkaline Phosphatase 63, Total Protein 7.8, Albumin 4.1, Globulin 3.7, Albumin/Globulin Ratio 1.1 07/06/18 13:05: Free T4 0.95, TSH 3rd Generation 3.20, Alcohol, Quantitative < 10 07/06/18 13:05: Salicylates < 1 L, Acetaminophen < 10.0 L 07/06/18 13:05: WBC 10.8, RBC 4.64, Hgb 14.4, Hct 44.1, MCV 95.0, MCH 31.0, MCHC 32.7, RDW 13.6, Plt Count 263, MPV 10.0, Gran % 71.5 H, Lymph % (Auto) 20.8 L, [place] % (Auto) 6.8 H, Eos % (Auto) 0.7 L, Baso % (Auto) 0.2, Gran # 7.75 H, Lymph # (Auto) 2.3, [place] # (Auto) 0.7 H, Eos # (Auto) 0.1, Baso # (Auto) 0.02 Vital Signs Temp Pulse Resp BP Pulse Ox 07/10/18 09:24 56 L 97/62 L 07/10/18 06:45 98.2 F 56 L 20 97/62 L 07/09/18 17:11 69 120/63 07/09/18 09:13 60 140/71 07/09/18 07:00 98.2 F 60 22 140/71 07/08/18 16:58 70 150/86 07/08/18 10:40 102 H 171/96 H 07/08/18 07:00 97.3 F L 62 20 108/50 L 07/08/18 06:59 97.3 F L 62 22 108/50 L 07/07/18 20:40 67 20 116/76 07/07/18 16:00 75 115/59 L 07/07/18 08:53 87 157/88 H 07/07/18 07:10 98.3 F 87 20 157/88 H 07/06/18 18:00 18 07/06/18 16:35 98.2 F 81 18 158/70 H 97 07/06/18 15:00 90 18 168/78 H 96 07/06/18 12:43 98.0 F 97 H 18 176/89 H 97 DSM 5 Symptoms Update: Shortly the patient is a 82-year old female with a 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 Patient requires further evaluation and sta bilization and medication adjustments. pt was seen in her room today, patient complaining of anxiety as well as dizziness, patient was initiated with Effexor and it was started today, half an hour before patient took medication and most likely it is related to Effexor. Patient was educated that about potential side effects from the Effexor, patient wants to continue taking Effexor for at least this week to make sure that she tolerated well. Patient was tearful, patient said that she is tired "being depressed, "I want to feel better, when other doctor said that it will take two weeks for the medication to start working, I said that I will be by that time". pt appears to be depressed and anxious, as well as tearful. family meeting took place 07/10/18, family is against ECT. see 07/11/18 notes for more detailed information. as per staff, pt is calm, depressed, self isolating. no agitation/no psychosis. ECT postponed for now. Impression: DSM 5 Diagnosis: MDD, severe with no psychosis Medication Change: Yes (effexor) Medical Record Reviewed: Yes Consults ordered or reviewed: cleared pt for ECT cleared pt for ECT consulted with over the phone, pt has no major contraindications for ECT Mental Status Examination - Cognitive Function Orientation: Person, Place, Situation, Time Memory: Intact Attention: Poor (improvement) Concentration: Poor Association: WNL Fund of Knowledge: WNL - Mood Mood: Depressed ("only I know the way I feel, I feel very depressed") - Affect Affect: Flat - Formal Thought Process Formal Thought Process: No Impairment - Suicidal Ideation Suicidal Ideation: No - Homicidal Ideation Homicidal Ideation: No Goal/Treatment Plan - Goal/Treatment Plan Need for Continued Stay: Remain at risks for inpatient hospitalization, Severe depression anxiety, Discharge may exacerbated symptoms, Severe functional impairment Progress Toward Problem(s) and Goals/Treatment Plan: Milieu/structure/supportive therapy Medical consult will be called for urinary tract infection and ECT clearance, pt was cleared for ECT Cardiology called for a ECT clearance, pt was cleared for ECT xanax 0.25tid prn for anxiety Remeron7.5 mg at the nighttime for insomnia and depression effexor 37.5mg daily for depression/anxiety ECT will be postponed SW consultation for discharge plan and social issues Family involvement Follow up on labs Will monitor closely Pt was educated about risk/benefits and alternatives of medications, coping strategies (safety plan, suicide prevention), relapse prevention, importance of follow up with psychiatrist and therapist, stay away from drugs/alcohol/smoking Estimated Date of D/C: 07/17/18
--- NOTE | 2018-07-12 19:43 | PN ---
DATE: 07/12/2018 REASON FOR CONSULTATION AND FOLLOWUP: Cardiac evaluation, possible ECT, admitted to the psych floor with depression. SUBJECTIVE: The patient denies any chest pain, shortness of breath, or any palpitations with concern of ECT, family decided to hold ECT for now and try medication. OBJECTIVE: GENERAL: Not in apparent distress. VITAL SIGNS: Temperature afebrile, heart rate 77, and blood pressure . HEENT: PERRLA. Extraocular muscles intact. NECK: Supple. No carotid bruit. No thyromegaly. CHEST: Clear to auscultation. HEART: S1 and S2 regular. ABDOMEN: Soft. EXTREMITIES: Clubbing and cyanosis negative. LABORATORY DATA: Blood workup as follows; WBC 10.8, hemoglobin 14.4, hematocrit 44.1, and platelet count 263. Chemistry shows sodium 130, potassium 4.2, chloride 105, carbon dioxide 28, anion gap of 9, BUN 18, and creatinine 1. Triglycerides 86, cholesterol 227, LDL 164, and HDL 56. TSH 2.63. Fasting sugar 97. IMPRESSION: An 82-year-old female with past medical history significant for severe depression, admitted with agitation to psychiatric floor. History of right hip replacement, arthritis, migraine, and history of cholecystectomy in the past. Recent echo shows ejection fraction of 45%, [id number] tricuspid regurgitation. The patient has a suicidal agitation and scheduled for electroconvulsive therapy, but family wanted to try medication first, so electroconvulsive therapy was deferred, probably one episode of high blood pressure secondary to anxiety and anxiousness. RECOMMENDATIONS: Continue hydralazine p.r.n. for systolic more than 170. Continue metoprolol, the patient is already 50 b.i.d. We will follow with you. The patient is scheduled from cardiac point of view for ECG. Continue atorvastatin the patient's elevated LDL. Thank you Dr. Lopez for providing us the opportunity in taking care of the patient, Essie Simons. Antoinette Shelton MD
--- NOTE | 2018-07-13 01:08 | PN ---
DATE: 07/12/2018 SUBJECTIVE: The patient is 82-year-old. Seen and examined. Doing well. Sitting in the room and watching TV. She states she still feels depressed, and is anxious not to get ECG done. PHYSICAL EXAMINATION: VITAL SIGNS: She is afebrile, pulse 77, respirations 18, and blood pressure 166/78. LUNGS: Bilateral fair airflow. No rhonchi or crackle. HEART: S1 and S2 audible. ABDOMEN: Soft, nontender. No rebound. No guarding. NEUROLOGICAL: The patient is awake, alert, oriented, communicative, ambulatory. ASSESSMENT: 1. Hypertension. 2. Hyperlipidemia. 3. Major depression. 4. Chronic back pain. PLAN: I will add clonidine 0.1 mg three times a day as needed for systolic more than 150. Belem Mahmood MD
[2018-07-13] MEDS: Cefpodoxime (Vantin) 100 mg Tab PO SCH ×2 (06:23→17:11)
--- NOTE | 2018-07-13 14:20 | PN ---
DATE: 07/13/2018 REASON FOR CONSULTATION AND FOLLOWUP: Cardiac evaluation, possible ECT, admitted to the psych floor with depression. SUBJECTIVE: The patient denies any chest pain, shortness of breath, or any palpitations. The patient is concerned about ECT, family decided to hold ECT and try to treat medically first. OBJECTIVE: GENERAL: Not in apparent distress, sitting in the bed, and going for the breakfast. VITAL SIGNS: Temperature afebrile, heart rate 56, and blood pressure 123/66. HEENT: PERRLA. Extraocular muscles intact. NECK: Supple. No carotid bruit. No thyromegaly. CHEST: Clear to auscultation. HEART: S1 and S2 regular. ABDOMEN: Soft. EXTREMITIES: Clubbing and cyanosis negative. LABORATORY DATA: Blood workup as follows; WBC 10.8, hemoglobin 14.4, hematocrit 44.1, and platelet count 263. Chemistry shows sodium 130, potassium 4.2, chloride 105, carbon dioxide 28, anion gap of 9, BUN 18, and creatinine 1. TSH 2.37, total cholesterol 227, LDL 164, and HDL 56. IMPRESSION: An 82-year-old female with past medical history significant for severe depression, history of mild cardiomyopathy, admitted to psychiatric floor with history of right hip replacement, arthritis, migraine, and history of cholecystectomy in the past. Recent echo shows ejection fraction of 45%, [id number] tricuspid regurgitation. The patient has suicidal ideation and scheduled for electroconvulsive therapy, but family wanted to hold it off and try to treat medically. Now, the patient is currently being treated medically. RECOMMENDATIONS: Continue beta bud 50 mg p.o. b.i.d. The patient is stable, off and on patient gets high blood pressure, most likely secondary to anxiety disorder. The patient has also high cholesterol, on 10 mg of atorvastatin, so we will increase to 20 and we will sign off and glad to follow p.r.n. Thank you Dr. Lopez, for providing us the opportunity in taking care of the patient, Essie Simons. The patient is being treated medically. We will be glad to follow p.r.n. [facility] status is stable. Antoinette Shelton MD
--- NOTE | 2018-07-13 15:02 | PCM.PYCHPN ---
Psychiatric Progress Note - Psychiatric Progress Note Patient seen today, length of contact: 30min Patient Chief Complaint: "I will take effexor for now, but I feel very dizzy and anxious" Problems Identified/Issues Discussed: ECT risk/benefits and alternatives, suicide/ homicide prevention, past psychiatric h/o, current psychiatric symptoms, medical problems, risk/benefits and alternatives of medications, medications compliance, coping strategies, substance abuse h/o, relapse prevention, importance of follow up with psychiatrist and therapist, discharge plan. Medical Problems: pt is relatively healthy h/o HTN h/o falls Diagnostic Results: 07/06/18 13:05 07/06/18 13:05 Lab Results 07/07/18 08:10: RPR Nonreactive 07/07/18 08:10: Free T4 0.96, TSH 3rd Generation 2.37 07/07/18 08:10: Fasting Glucose 97, Triglycerides 86, Cholesterol 227 H, LDL Cholesterol Direct 164 H, HDL Cholesterol 56 07/06/18 14:50: Urine Color Light yellow, Urine Appearance Sl cloudy, Urine pH 7.0, Ur Specific [place] <= 1.005, Urine Protein Negative, Urine Glucose (UA) Negative, Urine Ketones Negative, Urine Blood Negative, Urine Nitrate Positive H , Urine Bilirubin Negative, Urine Urobilinogen 0.2, Ur Leukocyte Esterase Large H, Urine RBC 0 - 2, Urine WBC 5 - 10, Ur Epithelial Cells 1 - 3, Urine Bacteria Many 07/06/18 13:05: Sodium 138, Potassium 4.2, Chloride 105, Carbon Dioxide 28, Anion Gap 9 L, BUN 18, Creatinine 1.0, Est GFR ( Amer) > 60, Est GFR (Non-Af Amer) 53, Random Glucose 115 H, Calcium 9.6, Total Bilirubin 0.5, AST 21, ALT 17, Alkaline Phosphatase 63, Total Protein 7.8, Albumin 4.1, Globulin 3.7, Albumin/Globulin Ratio 1.1 07/06/18 13:05: Free T4 0.95, TSH 3rd Generation 3.20, Alcohol, Quantitative < 10 07/06/18 13:05: Salicylates < 1 L, Acetaminophen < 10.0 L 07/06/18 13:05: WBC 10.8, RBC 4.64, Hgb 14.4, Hct 44.1, MCV 95.0, MCH 31.0, MCHC 32.7, RDW 13.6, Plt Count 263, MPV 10.0, Gran % 71.5 H, Lymph % (Auto) 20.8 L, [place] % (Auto) 6.8 H, Eos % (Auto) 0.7 L, Baso % (Auto) 0.2, Gran # 7.75 H, Lymph # (Auto) 2.3, [place] # (Auto) 0.7 H, Eos # (Auto) 0.1, Baso # (Auto) 0.02 Vital Signs Temp Pulse Resp BP Pulse Ox 07/10/18 09:24 56 L 97/62 L 07/10/18 06:45 98.2 F 56 L 20 97/62 L 07/09/18 17:11 69 120/63 07/09/18 09:13 60 140/71 07/09/18 07:00 98.2 F 60 22 140/71 07/08/18 16:58 70 150/86 07/08/18 10:40 102 H 171/96 H 07/08/18 07:00 97.3 F L 62 20 108/50 L 07/08/18 06:59 97.3 F L 62 22 108/50 L 07/07/18 20:40 67 20 116/76 07/07/18 16:00 75 115/59 L 07/07/18 08:53 87 157/88 H 07/07/18 07:10 98.3 F 87 20 157/88 H 07/06/18 18:00 18 07/06/18 16:35 98.2 F 81 18 158/70 H 97 07/06/18 15:00 90 18 168/78 H 96 07/06/18 12:43 98.0 F 97 H 18 176/89 H 97 DSM 5 Symptoms Update: Shortly the patient is a 82-year old female with a 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 Patient requires further evaluation and stab ilization and medication adjustments. pt was seen in her room today, patient complaining of anxiety as well as dizziness and "lightheadedness", pt said that she had that problem in the past as well, pt also c/o whenever she walks "I am leaning to one side", pt also has h/o falls. pt is not very optimistic about med management "I do prefer to have ECT", pt's family is giving pt a hard time not supportive. Patient was educated that about potential side effects from the Effexor, patient wants to continue taking Effexor for at least this week to make sure that she tolerated well. Patient was tearful, patient said that she is tired "being depressed, "I want to feel better, when other doctor said that it will take two weeks for the medication to start working, I said that I will be by that time". pt appears to be depressed and anxious, as well as tearful. family meeting took place 07/10/18, family is against ECT. see 07/11/18 notes for more detailed information. as per staff, pt is calm, depressed, self isolating, but no agitation/no aggression, pt is socially appropriate. ECT postponed for now. Impression: DSM 5 Diagnosis: MDD, severe with no psychosis Medication Change: Yes (effexor) Medical Record Reviewed: Yes Consults ordered or reviewed: cleared pt for ECT cleared pt for ECT consulted with over the phone, pt has no major contraindications for ECT Mental Status Examination - Cognitive Function Orientation: Person, Place, Situation, Time Memory: Intact Attention: Poor (improvement) Concentration: Poor Association: WNL Fund of Knowledge: WNL - Mood Mood: Depressed ("only I know the way I feel, I feel very depressed") - Affect Affect: Flat - Formal Thought Process Formal Thought Process: No Impairment - Suicidal Ideation Suicidal Ideation: No - Homicidal Ideation Homicidal Ideation: No Goal/Treatment Plan - Goal/Treatment Plan Need for Continued Stay: Remain at risks for inpatient hospitalization, Severe depression anxiety, Discharge may exacerbated symptoms, Severe functional impairment Progress Toward Problem(s) and Goals/Treatment Plan: Milieu/structure/supportive therapy Medical consult will be called for urinary tract infection and ECT clearance, pt was cleared for ECT Cardiology called for a ECT clearance, pt was cleared for ECT xanax 0.25tid prn for anxiety Remeron7.5 mg at the nighttime for insomnia and depression effexor 37.5mg daily for depression/anxiety ECT will be postponed we will call for cardiology consult for lightheadedness/dizziness/falls SW consultation for discharge plan and social issues Family involvement Follow up on labs Will monitor closely Pt was educated about risk/benefits and alternatives of medications, coping strategies (safety plan, suicide prevention), relapse prevention, importance of follow up with psychiatrist and therapist, stay away from drugs/alcohol/smoking Estimated Date of D/C: 07/17/18
--- NOTE | 2018-07-14 08:21 | CON ---
DATE: 07/13/2018 HISTORY OF PRESENT ILLNESS: This is an 82-year-old female with past medical history of hypertension, mitral valve prolapse, migraine, gastroesophageal reflux disease, depression, mild cardiomyopathy, and the patient with history of hip replacement, arthritis, migraine, and status post cholecystectomy. The patient came to the emergency room with worsening of the depression, admitted with depression and felt dizzy. The patient is sitting comfortably. They want to clear her for ECT next week and called to evaluate the patient. PAST MEDICAL HISTORY: Mitral valve prolapse, severe depression, and cardiomyopathy. PHYSICAL EXAMINATION: NEUROLOGIC: Alert, awake, oriented to self and place, and sitting comfortably, not in pain. Cranial nerves II through XII are tested. Pupils reactive. Spontaneous movement of the extremities noted. Deep tendon reflexes are 1+. Both plantars are downgoing. Sensory appears intact. Cerebellar gait deferred. DIAGNOSTIC DATA: The patient had MRI of the brain was done last in 03/2018 and 04/2018, which did not show any mass lesion and no acute infarct or hemorrhage was seen and the patient was cleared from MRI point. IMPRESSION AND PLAN: An 82-year-old female with a past medical history of hypertension, aortic stenosis, and the patient with decreased ejection fraction. Since the MRI did not show any acute infarct or stroke, the patient is cleared for electroconvulsive therapy from my point of view. Ari Sharp MD
--- NOTE | 2018-07-14 08:30 | PN ---
DATE: 07/13/2018 SUBJECTIVE: The patient is 82-year-old seen and examined, doing well. She is still confused and she should go for ECT or not, every time I visit, she has question about it, although Dr. Mosher has been reassuring that it is up to her, but she does admit she is feeling better as compared to when she came in. She is eating and tolerating. PHYSICAL EXAMINATION: VITAL SIGNS: She is afebrile. Pulse 56, respirations 18 and blood pressure 123/66. LUNGS: Bilateral fair airflow. No rhonchi or crackle. HEART: S1 and S2, audible. ABDOMEN: Soft and nontender. No rebound. No guarding. NEUROLOGIC: The patient is awake, alert, oriented, communicative and ambulatory, ambulates with the walker. ASSESSMENT: 1. Major depression. 2. Hypertension. 3. Hyperlipidemia. 4. Chronic back pain. PLAN: Currently, the patient is stable on her current medications. Encourage physical therapy. She has E. coli UTI and we will continue on Vantin. We will repeat urinalysis. Belem Mahmood MD
--- NOTE | 2018-07-14 14:04 | PN ---
DATE: 07/14/2018 SUBJECTIVE: The patient is 82 years old, seen and examined. She said she felt very depressed this morning. Her daughter usually called around 4:00 and anxiety and depression into her. The patient says she started to feel better until she hears from her daughter, who has been refusing for family counseling. Otherwise, she is feeling better. PHYSICAL EXAMINATION: VITAL SIGNS: She is afebrile, pulse 71, respirations 18, blood pressure 132/77. LUNGS: Bilateral fair airflow. No rhonchi or crackle. HEART: S1 and S2 audible. ABDOMEN: Soft and nontender. No rebound. No guarding. NEUROLOGICAL: She is awake, alert, oriented, communicative. LABORATORY DATA: There is no new lab available today. ASSESSMENT: 1. Major depression. 2. Anxiety disorder. 3. Hypertension. 4. Hyperlipidemia. PLAN: We will continue the patient on current medications. The patient needs family counseling and has a daughter. She states her daughter is could be the cause of her anxiety and depression; however, her son is very supportive for her. Belem Mahmood MD
--- NOTE | 2018-07-14 15:58 | PCM.PYCHPN ---
Psychiatric Progress Note - Psychiatric Progress Note Patient seen today, length of contact: 30min Patient Chief Complaint: "My family driving me crazy" Problems Identified/Issues Discussed: ECT risk/benefits and alternatives, suicide/ homicide prevention, past psychiatric h/o, current psychiatric symptoms, medical problems, risk/benefits and alternatives of medications, medications compliance, coping strategies, substance abuse h/o, relapse prevention, importance of follow up with psychiatrist and therapist, discharge plan. Medical Problems: pt is relatively healthy h/o HTN h/o falls Diagnostic Results: 07/06/18 13:05 07/06/18 13:05 Lab Results 07/07/18 08:10: RPR Nonreactive 07/07/18 08:10: Free T4 0.96, TSH 3rd Generation 2.37 07/07/18 08:10: Fasting Glucose 97, Triglycerides 86, Cholesterol 227 H, LDL Cholesterol Direct 164 H, HDL Cholesterol 56 07/06/18 14:50: Urine Color Light yellow, Urine Appearance Sl cloudy, Urine pH 7.0, Ur Specific [place] <= 1.005, Urine Protein Negative, Urine Glucose (UA) Negative, Urine Ketones Negative, Urine Blood Negative, Urine Nitrate Positive H , Urine Bilirubin Negative, Urine Urobilinogen 0.2, Ur Leukocyte Esterase Large H, Urine RBC 0 - 2, Urine WBC 5 - 10, Ur Epithelial Cells 1 - 3, Urine Bacteria Many 07/06/18 13:05: Sodium 138, Potassium 4.2, Chloride 105, Carbon Dioxide 28, Anion Gap 9 L, BUN 18, Creatinine 1.0, Est GFR ( Amer) > 60, Est GFR (Non-Af Amer) 53, Random Glucose 115 H, Calcium 9.6, Total Bilirubin 0.5, AST 21, ALT 17, Alkaline Phosphatase 63, Total Protein 7.8, Albumin 4.1, Globulin 3.7, Albumin/Globulin Ratio 1.1 07/06/18 13:05: Free T4 0.95, TSH 3rd Generation 3.20, Alcohol, Quantitative < 10 07/06/18 13:05: Salicylates < 1 L, Acetaminophen < 10.0 L 07/06/18 13:05: WBC 10.8, RBC 4.64, Hgb 14.4, Hct 44.1, MCV 95.0, MCH 31.0, MCHC 32.7, RDW 13.6, Plt Count 263, MPV 10.0, Gran % 71.5 H, Lymph % (Auto) 20.8 L, [place] % (Auto) 6.8 H, Eos % (Auto) 0.7 L, Baso % (Auto) 0.2, Gran # 7.75 H, Lymph # (Auto) 2.3, [place] # (Auto) 0.7 H, Eos # (Auto) 0.1, Baso # (Auto) 0.02 Vital Signs Temp Pulse Resp BP Pulse Ox 07/10/18 09:24 56 L 97/62 L 07/10/18 06:45 98.2 F 56 L 20 97/62 L 07/09/18 17:11 69 120/63 07/09/18 09:13 60 140/71 07/09/18 07:00 98.2 F 60 22 140/71 07/08/18 16:58 70 150/86 07/08/18 10:40 102 H 171/96 H 07/08/18 07:00 97.3 F L 62 20 108/50 L 07/08/18 06:59 97.3 F L 62 22 108/50 L 07/07/18 20:40 67 20 116/76 07/07/18 16:00 75 115/59 L 07/07/18 08:53 87 157/88 H 07/07/18 07:10 98.3 F 87 20 157/88 H 07/06/18 18:00 18 07/06/18 16:35 98.2 F 81 18 158/70 H 97 07/06/18 15:00 90 18 168/78 H 96 07/06/18 12:43 98.0 F 97 H 18 176/89 H 97 DSM 5 Symptoms Update: Shortly the patient is a 82-year old female with a 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 Patient requires further evaluation and stabilization and medication adjustments. Patient was seen today station, patient appears to be indecisive about treatment, patient asked this feature writer what does she feel about lithium, which at one patient said that her other son suggesting lithium for her medication regimen this feature writer educated patient about indication for lithium, patient does not have any bipolar symptoms, this feature writer advised patient to have family meeting over the weekend and come up with a final decision about her treatment plan, patient is willing to do so patient does not want to increase the dose of Effexor complaining of anxiety as well as depression, said that "my family is driving me crazy". Patient was seen by neurologist for "lightheadedness", pt said that she had that problem in the past as well, pt also c/o whenever she walks "I am leaning to one side", pt also has h/o falls. family meeting took place 07/10/18, family is against ECT. see 07/11/18 notes for more detailed information. as per staff, pt is calm, depressed, self isolating, but no agitation/no aggression, pt is socially appropriate. ECT postponed for now. Impression: DSM 5 Diagnosis: MDD, severe with no psychosis Medication Change: No ( ) Medical Record Reviewed: Yes Mental Status Examination - Cognitive Function Orientation: Person, Place, Situation, Time Memory: Intact Attention: Poor (improvement) Concentration: Poor Association: WNL Fund of Knowledge: WNL - Mood Mood: Depressed ("only I know the way I feel, I feel very depressed") - Affect Affect: Flat - Formal Thought Process Formal Thought Process: No Impairment - Suicidal Ideation Suicidal Ideation: No - Homicidal Ideation Homicidal Ideation: No Goal/Treatment Plan - Goal/Treatment Plan Need for Continued Stay: Remain at risks for inpatient hospitalization, Severe depression anxiety, Discharge may exacerbated symptoms, Severe functional impairment Progress Toward Problem(s) and Goals/Treatment Plan: Milieu/structure/supportive therapy Medical consult appreciated, was cleared for ECT Cardiology called for a ECT clearance, pt was cleared for ECT neurologist consult appreciated xanax 0.25tid prn for anxiety Remeron7.5 mg at the nighttime for insomnia and depression effexor 37.5mg daily for depression/anxiety ECT is considered we will call for cardiology consult for lightheadedness/dizziness/falls SW consultation for discharge plan and social issues Family involvement Follow up on labs Will monitor closely Pt was educated about risk/benefits and alternatives of medications, coping strategies (safety plan, suicide prevention), relapse prevention, importance of follow up with psychiatrist and therapist, stay away from drugs/alcohol/smoking Estimated Date of D/C: 07/19/18
--- NOTE | 2018-07-15 10:09 | PCM.PYCHPN ---
Psychiatric Progress Note - Psychiatric Progress Note Patient seen today, length of contact: 30min Problems Identified/Issues Discussed: I reviewed recent notes and met with patient at bedside. Grooming is fair and patient is oriented to month, year, location and circumstances. Focus vacillates and patient can be talkative, rambling and repetitive. She is still depressed, today she asks to increase effexor (though she had previously deferred on changes in her dose). She asks me how long the increase will take effect. She still agrees to ECT though has reservations, her reservations are mostly related to fear of this treatment being ineffective. Present she denies any SI, HI or AVH. Patient denies any new discomfort or pain. Patient has been calm and visible on the unit and generally keeps a low profile. There have been no behavioral issues thus far. Diagnostic Results: MDD severe with no psychosis Medication Change: Yes (Increase effexor) Medical Record Reviewed: Yes Mental Status Examination - Cognitive Function Orientation: Person, Place, Situation, Time Memory: Intact Attention: Poor (improvement) Concentration: Poor Association: WNL Fund of Knowledge: WNL - Mood Mood: Depressed ("only I know the way I feel, I feel very depressed") - Affect Affect: Flat - Formal Thought Process Formal Thought Process: No Impairment - Suicidal Ideation Suicidal Ideation: No - Homicidal Ideation Homicidal Ideation: No Goal/Treatment Plan - Goal/Treatment Plan Need for Continued Stay: Remain at risks for inpatient hospitalization, Severe depression anxiety, Discharge may exacerbated symptoms, Severe functional impairment Progress Toward Problem(s) and Goals/Treatment Plan: * c/w current tx and plan * Increased Effexor to 75 mg po daily, per patient request. * Vitals reviewed and noted below: 07/14/18 07/14/18 06:42 15:00 Temperature 98.5 F Pulse Rate 71 57 L Respiratory 18 Rate Blood Pressure 162/81 H 117/59 L * No new weekend lab results thus far Estimated Date of D/C: 07/19/18
--- NOTE | 2018-07-15 14:33 | PN ---
DATE: 07/15/2018 SUBJECTIVE: The patient is 82 years old, seen and examined, ambulatory with the walker, offers no complaint. Still had depression at times, but however, she is feeling lot better as compared to when she came in. PHYSICAL EXAMINATION: VITAL SIGNS: She is afebrile, pulse 54, respirations 20, and blood pressure 122/58. LUNGS: Clear. HEART: Regular rate and rhythm. ABDOMEN: Soft and nontender. No rebound. No guarding. NEUROLOGICAL: She is awake, alert, oriented, and ambulating with a walker. LABORATORY DATA: There is no new lab available today. ASSESSMENT: 1. History of major depression, seems to be improving. 2. Hypertension. 3. Hyperlipidemia. 4. Hypertriglyceridemia. PLAN: MAR reviewed and seems to be appropriate. Continue current medications. Her blood pressure seems to be under fair control. We will follow up. Belem Mahmood MD
--- NOTE | 2018-07-16 09:51 | PCM.PYCHPN ---
Psychiatric Progress Note - Psychiatric Progress Note Patient seen today, length of contact: 30min Problems Identified/Issues Discussed: I reviewed recent notes and met with patient at bedside again today. Grooming is fair and patient is oriented to month, year, location and circumstances. Focus seems better though patient can still be repetitive and rambling. Her affect is anxious and she reports continued depression and anxiety. Worries that ECT will not be effective, worries that her mood and anxiety symptoms will never improve (in effect, she worries about always worrying) Patient is still agreeable to effexor increase, to be implemented today. She denies any s/e from her medications. Apparently xanax fell off the MAR yesterday and patient was extra anxious but "was able to get through it". It was difficult because she "felt afraid of EVERYTHING" and still feels this way this morning. Present she denies any SI, HI or AVH. Patient denies any new discomfort or pain. Patient has been calm and visible on the unit. Was observed to attend group and socialize with other patients on Tuesday. There have been no major behavioral issues thus far. Diagnostic Results: MDD severe with no psychosis Medication Change: Yes (Increase effexor) Medical Record Reviewed: Yes Mental Status Examination - Cognitive Function Orientation: Person, Place, Situation, Time Memory: Intact Attention: Poor (improvement) Concentration: Poor Association: WNL Fund of Knowledge: WNL - Mood Mood: Depressed ("only I know the way I feel, I feel very depressed"), Anxious - Affect Affect: Constricted, Flat, Other (anxious) - Speech Speech: Appropriate - Formal Thought Process Formal Thought Process: No Impairment - Suicidal Ideation Suicidal Ideation: No - Homicidal Ideation Homicidal Ideation: No Goal/Treatment Plan - Goal/Treatment Plan Need for Continued Stay: Remain at risks for inpatient hospitalization, Severe depression anxiety, Discharge may exacerbated symptoms, Severe functional impairment Progress Toward Problem(s) and Goals/Treatment Plan: * c/w current tx and plan * Appreciate f/u by Dr. Mahmood on 07/15/18~SEP reviewed and considered appropriate thus far. * Increased Effexor to 75 mg po daily on 07/15/18, first dose of Effexor 75 mg given on 07/16/18. * Vitals reviewed and noted below: Selected Entries 07/15/18 07/15/18 07:19 16:00 Temperature 98.2 F Pulse Rate 54 L 55 L Respiratory 20 Rate Blood Pressure 122/58 L 134/66 * No new weekend lab results thus far Estimated Date of D/C: 07/19/18
--- NOTE | 2018-07-17 12:34 | PCM.PYCHPN ---
Psychiatric Progress Note - Psychiatric Progress Note Patient seen today, length of contact: 30min Patient Chief Complaint: "I decided not to have ECT treatment for now". Problems Identified/Issues Discussed: ECT risk/benefits and alternatives, suicide/ homicide prevention, past psychiatric h/o, current psychiatric symptoms, medical problems, risk/benefits and alternatives of medications, medications compliance, coping strategies, substance abuse h/o, relapse prevention, importance of follow up with psychiatrist and therapist, discharge plan. Medical Problems: pt is relatively healthy h/o HTN h/o falls Diagnostic Results: 07/06/18 13:05 07/06/18 13:05 Lab Results 07/07/18 08:10: RPR Nonreactive 07/07/18 08:10: Free T4 0.96, TSH 3rd Generation 2.37 07/07/18 08:10: Fasting Glucose 97, Triglycerides 86, Cholesterol 227 H, LDL Cholesterol Direct 164 H, HDL Cholesterol 56 07/06/18 14:50: Urine Color Light yellow, Urine Appearance Sl cloudy, Urine pH 7.0, Ur Specific [place] <= 1.005, Urine Protein Negative, Urine Glucose (UA) Negative, Urine Ketones Negative, Urine Blood Negative, Urine Nitrate Positive H , Urine Bilirubin Negative, Urine Urobilinogen 0.2, Ur Leukocyte Esterase Large H, Urine RBC 0 - 2, Urine WBC 5 - 10, Ur Epithelial Cells 1 - 3, Urine Bacteria Many 07/06/18 13:05: Sodium 138, Potassium 4.2, Chloride 105, Carbon Dioxide 28, Anion Gap 9 L, BUN 18, Creatinine 1.0, Est GFR ( Amer) > 60, Est GFR (Non-Af Amer) 53, Random Glucose 115 H, Calcium 9.6, Total Bilirubin 0.5, AST 21, ALT 17, Alkaline Phosphatase 63, Total Protein 7.8, Albumin 4.1, Globulin 3.7, Albumin/Globulin Ratio 1.1 07/06/18 13:05: Free T4 0.95, TSH 3rd Generation 3.20, Alcohol, Quantitative < 10 07/06/18 13:05: Salicylates < 1 L, Acetaminophen < 10.0 L 07/06/18 13:05: WBC 10.8, RBC 4.64, Hgb 14.4, Hct 44.1, MCV 95.0, MCH 31.0, MCHC 32.7, RDW 13.6, Plt Count 263, MPV 10.0, Gran % 71.5 H, Lymph % (Auto) 20.8 L, [place] % (Auto) 6.8 H, Eos % (Auto) 0.7 L, Baso % (Auto) 0.2, Gran # 7.75 H, Lymph # (Auto) 2.3, [place] # (Auto) 0.7 H, Eos # (Auto) 0.1, Baso # (Auto) 0.02 Vital Signs Temp Pulse Resp BP Pulse Ox 07/10/18 09:24 56 L 97/62 L 07/10/18 06:45 98.2 F 56 L 20 97/62 L 07/09/18 17:11 69 120/63 07/09/18 09:13 60 140/71 07/09/18 07:00 98.2 F 60 22 140/71 07/08/18 16:58 70 150/86 07/08/18 10:40 102 H 171/96 H 07/08/18 07:00 97.3 F L 62 20 108/50 L 07/08/18 06:59 97.3 F L 62 22 108/50 L 07/07/18 20:40 67 20 116/76 07/07/18 16:00 75 115/59 L 07/07/18 08:53 87 157/88 H 07/07/18 07:10 98.3 F 87 20 157/88 H 07/06/18 18:00 18 07/06/18 16:35 98.2 F 81 18 158/70 H 97 07/06/18 15:00 90 18 168/78 H 96 07/06/18 12:43 98.0 F 97 H 18 176/89 H 97 DSM 5 Symptoms Update: Shortly the patient is a 82-year old female with a 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 Patient requires further evaluation and stabilization and medication adjustments. Patient was seen today at the treatment team meeting, patient appears to be anx ious, indecisive about ECT procedure, patient made statement "my family is against it, they feel very strongly about that, I decided to be on medication management only". At this point decision was made to hold ECT treatment for now, patient was advised if she would not feel better and will be offered to her again, patient seems to be happy about this decision. Effexor was increased to 75 mg over the weekend, so far patient tolerated well, no side effects observed or reported. As per staff patient is visible in the unit, over the weekend patient appears to be very anxious, depressed. Patient was seen by neurologist for "lightheadedness", she reported. family meeting took place 07/10/18, family is against ECT. see 07/11/18 notes for more detailed information. as per staff, pt is calm, depressed, self isolating, but no agitation/no aggression, pt is socially appropriate. ECT postponed for now. Impression: DSM 5 Diagnosis: MDD, severe with no psychosis Medication Change: Yes (Increase effexor) Medical Record Reviewed: Yes Mental Status Examination - Cognitive Function Orientation: Person, Place, Situation, Time Memory: Intact Attention: Poor (improvement) Concentration: Poor (Some improvement) Association: WNL Fund of Knowledge: WNL - Mood Mood: Depressed (I feel very anxious), Anxious - Affect Affect: Constricted, Flat, Other (anxious) - Speech Speech: Appropriate - Formal Thought Process Formal Thought Process: No Impairment - Suicidal Ideation Suicidal Ideation: No - Homicidal Ideation Homicidal Ideation: No Goal/Treatment Plan - Goal/Treatment Plan Need for Continued Stay: Remain at risks for inpatient hospitalization, Severe depression anxiety, Discharge may exacerbated symptoms, Severe functional impairment Progress Toward Problem(s) and Goals/Treatment Plan: Milieu/structure/supportive therapy ECT was canceled Medical consult appreciated, was cleared for ECT Cardiology called for a ECT clearance, pt was cleared for ECT neurologist consult appreciated xanax 0.25tid prn for anxiety Remeron7.5 mg at the nighttime for insomnia and depression effexor 75 mg daily for depression/anxiety cardiology consult for lightheadedness/dizziness/falls appreciated SW consultation for discharge plan and social issues Family involvement Follow up on labs Will monitor closely Pt was educated about risk/benefits and alternatives of medications, coping strategies (safety plan, suicide prevention), relapse prevention, importance of follow up with psychiatrist and therapist, stay away from drugs/alcohol/smoking Estimated Date of D/C: 07/19/18
--- NOTE | 2018-07-17 16:23 | PN ---
DATE: 07/17/2018 SEX OF THE PATIENT: Female. AGE OF THE PATIENT: 82. REASON FOR CONSULTATION AND FOLLOWUP: Cardiac evaluation, possible ECT, admitted to psych floor for depression. SUBJECTIVE: The patient denies any chest pain, shortness of breath, or any palpitation. OBJECTIVE: GENERAL: Not in apparent distress. VITAL SIGNS: Temperature afebrile, heart rate 62, and blood pressure 123/74. HEENT: PERRLA, extraocular muscles intact. NECK: Supple, no carotid bruits, no thyromegaly. CHEST: Clear to auscultation. HEART: S1 and S2 regular. ABDOMEN: Soft. EXTREMITIES: Clubbing and cyanosis negative. LABORATORY DATA: Blood workup as follows: Labs done on 07/06/2018 WBC 10.8, hemoglobin 14.4, hematocrit 44.1, and platelet count 263. Chemistry shows sodium 130, potassium 4.2, chloride 105, carbon dioxide 28, anion gap 9, BUN 18, and creatinine 1. Cholesterol 227, LDL 164, HDL 56, and TSH 2.37. IMPRESSION: An 82-year-old female with past medical history significant for hypertension, hyperlipidemia, depression, and mild cardiomyopathy, admitted to the psych floor for depression, history of right hip surgery, arthritis, migraine, and history of cholecystectomy in the past. Most recent echo showed ejection fraction of 44% and [id number] tricuspid regurgitation. The patient had suicidal ideation, scheduled for electroconvulsive therapy, ECT, but the family wanted to be treated medically and wanted to hold it off. The patient is currently being treated medically. RECOMMENDATIONS: Continue beta-bud 50 mg daily. The patient is stable from cardiology point of view. No anginal symptoms. We will sign off and glad to follow p.r.n. Thank you Dr. Lopez for providing us the opportunity in taking care of your patient Essie Simons. Antoinette Shelton MD
--- NOTE | 2018-07-18 10:32 | PCM.PYCHPN ---
Psychiatric Progress Note - Psychiatric Progress Note Patient seen today, length of contact: 30min Patient Chief Complaint: "I slept very well last night" Problems Identified/Issues Discussed: ECT risk/benefits and alternatives, suicide/ homicide prevention, past psychiatric h/o, current psychiatric symptoms, medical problems, risk/benefits and alternatives of medications, medications compliance, coping strategies, substance abuse h/o, relapse prevention, importance of follow up with psychiatrist and therapist, discharge plan. Medical Problems: pt is relatively healthy h/o HTN h/o falls Diagnostic Results: 07/06/18 13:05 07/06/18 13:05 Lab Results 07/07/18 08:10: RPR Nonreactive 07/07/18 08:10: Free T4 0.96, TSH 3rd Generation 2.37 07/07/18 08:10: Fasting Glucose 97, Triglycerides 86, Cholesterol 227 H, LDL Cholesterol Direct 164 H, HDL Cholesterol 56 07/06/18 14:50: Urine Color Light yellow, Urine Appearance Sl cloudy, Urine pH 7.0, Ur Specific [place] <= 1.005, Urine Protein Negative, Urine Glucose (UA) Negative, Urine Ketones Negative, Urine Blood Negative, Urine Nitrate Positive H , Urine Bilirubin Negative, Urine Urobilinogen 0.2, Ur Leukocyte Esterase Large H, Urine RBC 0 - 2, Urine WBC 5 - 10, Ur Epithelial Cells 1 - 3, Urine Bacteria Many 07/06/18 13:05: Sodium 138, Potassium 4.2, Chloride 105, Carbon Dioxide 28, Anion Gap 9 L, BUN 18, Creatinine 1.0, Est GFR ( Amer) > 60, Est GFR (Non-Af Amer) 53, Random Glucose 115 H, Calcium 9.6, Total Bilirubin 0.5, AST 21, ALT 17, Alkaline Phosphatase 63, Total Protein 7.8, Albumin 4.1, Globulin 3.7, Albumin/Globulin Ratio 1.1 07/06/18 13:05: Free T4 0.95, TSH 3rd Generation 3.20, Alcohol, Quantitative < 10 07/06/18 13:05: Salicylates < 1 L, Acetaminophen < 10.0 L 07/06/18 13:05: WBC 10.8, RBC 4.64, Hgb 14.4, Hct 44.1, MCV 95.0, MCH 31.0, MCHC 32.7, RDW 13.6, Plt Count 263, MPV 10.0, Gran % 71.5 H, Lymph % (Auto) 20.8 L, [place] % (Auto) 6.8 H, Eos % (Auto) 0.7 L, Baso % (Auto) 0.2, Gran # 7.75 H, Lymph # (Auto) 2.3, [place] # (Auto) 0.7 H, Eos # (Auto) 0.1, Baso # (Auto) 0.02 Vital Signs Temp Pulse Resp BP Pulse Ox 07/10/18 09:24 56 L 97/62 L 07/10/18 06:45 98.2 F 56 L 20 97/62 L 07/09/18 17:11 69 120/63 07/09/18 09:13 60 140/71 07/09/18 07:00 98.2 F 60 22 140/71 07/08/18 16:58 70 150/86 07/08/18 10:40 102 H 171/96 H 07/08/18 07:00 97.3 F L 62 20 108/50 L 07/08/18 06:59 97.3 F L 62 22 108/50 L 07/07/18 20:40 67 20 116/76 07/07/18 16:00 75 115/59 L 07/07/18 08:53 87 157/88 H 07/07/18 07:10 98.3 F 87 20 157/88 H 07/06/18 18:00 18 07/06/18 16:35 98.2 F 81 18 158/70 H 97 07/06/18 15:00 90 18 168/78 H 96 07/06/18 12:43 98.0 F 97 H 18 176/89 H 97 Temp Pulse Resp BP Pulse Ox 98.6 F 65 20 143/85 97 07/18/18 07:32 07/18/18 08:30 07/18/18 07:32 07/18/18 08:30 07/13/18 15:00 DSM 5 Symptoms Update: Shortly the patient is a 82-year old female with a 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 Patient requires further evaluation and stabilization and medication adjustments. Patient was seen today in the dining area, patient presented calmer, patient reported that she had a good night sleep, and reported yesterday she was feeling very anxious, and now "I am glad that my family is happy about me not having ECT". pt has tendency of splitting staff, overidealizing this underwriter and devaluing others. Effexor was increased to 75 mg over the weekend, so far patient tolerated well, no side effects observed or reported. As per staff patient is visible in the unit, over the weekend patient appears to be very anxious, if needed. Patient was seen by neurologist. family meeting took place 07/10/18, family is against ECT. see 07/11/18 notes for more detailed information. as per staff, pt is calm, depressed, self isolating, but no agitation/no aggression, pt is socially appropriate. ECT postponed for now. Impression: DSM 5 Diagnosis: MDD, severe with no psychosis Medication Change: No (Effexor was increased over the weekend) Medical Record Reviewed: Yes Consults ordered or reviewed: cleared pt for ECT cleared pt for ECT consulted with over the phone, pt has no major contraindications for ECT Mental Status Examination - Cognitive Function Orientation: Person, Place, Situation, Time Memory: Intact Attention: Poor (improvement) Concentration: Poor (Some improvement) Association: WNL Fund of Knowledge: WNL - Mood Mood: Depressed (I feel very anxious), Anxious - Affect Affect: Constricted, Flat, Other (anxious) - Speech Speech: Appropriate - Formal Thought Process Formal Thought Process: No Impairment - Suicidal Ideation Suicidal Ideation: No - Homicidal Ideation Homicidal Ideation: No Goal/Treatment Plan - Goal/Treatment Plan Need for Continued Stay: Remain at risks for inpatient hospitalization, Severe depression anxiety, Discharge may exacerbated symptoms, Severe functional impairment Progress Toward Problem(s) and Goals/Treatment Plan: Milieu/structure/supportive therapy ECT was canceled Medical consult appreciated, was cleared for ECT Cardiology called for a ECT clearance, pt was cleared for ECT neurologist consult appreciated xanax 0.25tid prn for anxiety Remeron7.5 mg at the nighttime for insomnia and depression effexor 75 mg daily for depression/anxiety cardiology consult for lightheadedness/dizziness/falls appreciated consultation for discharge plan and social issues Family involvement Follow up on labs Will monitor closely Pt was educated about risk/benefits and alternatives of medications, coping strategies (safety plan, suicide prevention), relapse prevention, importance of follow up with psychiatrist and therapist, stay away from drugs/alcohol/smoking Estimated Date of D/C: 07/20/18
--- NOTE | 2018-07-19 09:06 | PN ---
DATE: 07/17/2018 SUBJECTIVE: The patient is 82 years old, seen and examined, doing well, get depressed at times, not very much anxious to go home. PHYSICAL EXAMINATION: VITAL SIGNS: The patient is afebrile, pulse 54, respirations 20, blood pressure 123/74. LUNGS: Bilateral fair airflow. No rhonchi or crackles. HEART: S1 and S2 audible. ABDOMEN: Soft, nontender. No rebound, no guarding. NEUROLOGIC: The patient is awake, alert, oriented, communicative, ambulatory with the walker. ASSESSMENT: 1. History of depression. 2. Suicidal thoughts. 3. Hypertension. 4. Hyperlipidemia. 5. Chronic back pain. PLAN: Currently, her medication is being adjusted and she is getting medical treatment. She is still reluctant to have ECT and we will consider after holiday. Belem Mahmood MD
--- NOTE | 2018-07-19 09:43 | PN ---
DATE: 07/18/2018 SUBJECTIVE: The patient is an 82-year, seen and examined. Sitting in chair and reading her novel. 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 She states she is very nervous about ECT, it was planned past Tuesday, but because of her nervousness, on hold. PHYSICAL EXAMINATION VITAL SIGNS: She is afebrile, pulse 65, respirations 20, blood pressure 126/67. LUNGS: Bilateral fair airflow. No rhonchi or crackle. HEART: S1, S2 audible. ABDOMEN: Soft, nontender. No rebound. No guarding. NEUROLOGICAL: The patient is awake, alert, oriented, communicative and ambulatory. ASSESSMENT AND PLAN: 1. History of depression. 2. Hypertension. 3. Hyperlipidemia. 4. Deconditioning and difficulty walking. PLAN: The patient is currently seems to be stable. She is still in limbo to decide about ECT. She is leaning towards medical treatment and she might go with that if she does not improve and she state she always can come back. Belem Mahmood MD
--- NOTE | 2018-07-19 11:49 | PCM.BM ---
<Kelvin Winters - Last Filed: 07/19/18 11:46> Treatment Plan Problems - Problems identified on initial assessmt DEPRESSIVE MOOD Date Initiated: 07/06/18 Time Initiated: 18:42 Assessment reference: HP, Other Status: Active HOPLESSNESS/HELPLESSNESS Date Initiated: 07/06/18 Time Initiated: 18:43 Assessment reference: HP, Other Status: Active SELFCARE DEFICIT Date Initiated: 07/06/18 (FALL RISK) Time Initiated: 18:46 Assessment reference: HP, Other Status: Active Treatment assets and liabiliti Patient Assests: cooperative, good support system, negotiates basic needs, good interpersonal skills, strong lacey Patient Liabilities: medical problems, imparied memory, visual impairment, other - Milieu Protocol Maintain good personal hygiene: daily Encourage regular showers, daily Remind patient to perform daily oral care, daily Assist patient to perform ADL's Maintain personal safety: daily Educate patient to report safety concerns to staff, daily Monitor environment for contraband/sharps Medication safety: Monitor for expected outcome, potential side effects: daily, Assess barriers to learning: daily, Assess readiness for medication education: daily Milieu Narrative: Milieu/structure/supportive therapy ECT was canceled Medical consult appreciated, was cleared for ECT Cardiology called for a ECT clearance, pt was cleared for ECT neurologist consult appreciated xanax 0.25tid prn for anxiety Remeron7.5 mg at the nighttime for insomnia and depression effexor 75 mg daily for depression/anxiety cardiology consult for lightheadedness/dizziness/falls appreciated consultation for discharge plan and social issues Family involvement Follow up on labs Will monitor closely Pt was educated about risk/benefits and alternatives of medications, coping strategies (safety plan, suicide prevention), relapse prevention, importance of follow up with psychiatrist and therapist, stay away from drugs/alcohol/smoking Family Contact Family involvement: Family/SO is involved Family contact: Patient agrees to contact Family contact name: Carlo Sepulveda Family contacted how many times per week?: 2 Discharge/Continuing Care - Education Needs Education Needs: Patient Medication, Patient Diagnosis/Disease Process, Patient Coping Skills, Patient Community resources, Patient Activities of Daily Living, Patient Health Practices/Safety, Patient Personal Hygiene/Grooming, Patient Aftercare Safety Plan - Discharge Discharge Criteria: Free of Suicidal thoughts, Free of Homicidal thoughts, Free of paranoid thoughts, Free of agitation, Ability to care for self - Treatment Team Participation Patient/Family/SO Statement: Milieu/structure/supportive therapy ECT was canceled Medical consult appreciated, was cleared for ECT Cardiology called for a ECT clearance, pt was cleared for ECT neurologist consult appreciated xanax 0.25tid prn for anxiety Remeron7.5 mg at the nighttime for insomnia and depression effexor 75 mg daily for depression/anxiety cardiology consult for lightheadedness/dizziness/falls appreciated consultation for discharge plan and social issues Family involvement Follow up on labs Will monitor closely Pt was educated about risk/benefits and alternatives of medications, coping strategies (safety plan, suicide prevention), relapse prevention, importance of follow up with psychiatrist and therapist, stay away from drugs/alcohol/smoking Treatment Plan Review - Problem DEPRESSIVE MOOD Time Initiated: 18:42 HOPLESSNESS/HELPLESSNESS Time Initiated: 18:43 SELFCARE DEFICIT Time Initiated: 18:46 <Vidhi Lopez - Last Filed: 07/19/18 13:38> - Diagnosis (1) MDD (major depressive disorder) Status: Acute Interventions: 07/19/18 13:37 Patient is improving, patient tolerates medications well Denied suicidal ideation denied homicidal ideation Sleep is improving Patient made decision not to do ECT this admission (2) Anxiety Status: Acute Interventions: 07/19/18 13:37 Anxiety is well controlled, at times Xanax 0.25 mg twice a day
--- NOTE | 2018-07-19 13:44 | PCM.PYCHPN ---
Psychiatric Progress Note - Psychiatric Progress Note Patient seen today, length of contact: 30min Patient Chief Complaint: "I slept very well last night" Problems Identified/Issues Discussed: ECT risk/benefits and alternatives, suicide/ homicide prevention, past psychiatric h/o, current psychiatric symptoms, medical problems, risk/benefits and alternatives of medications, medications compliance, coping strategies, substance abuse h/o, relapse prevention, importance of follow up with psychiatrist and therapist, discharge plan. Medical Problems: pt is relatively healthy h/o HTN h/o falls Diagnostic Results: 07/06/18 13:05 07/06/18 13:05 Lab Results 07/07/18 08:10: RPR Nonreactive 07/07/18 08:10: Free T4 0.96, TSH 3rd Generation 2.37 07/07/18 08:10: Fasting Glucose 97, Triglycerides 86, Cholesterol 227 H, LDL Cholesterol Direct 164 H, HDL Cholesterol 56 07/06/18 14:50: Urine Color Light yellow, Urine Appearance Sl cloudy, Urine pH 7.0, Ur Specific [place] <= 1.005, Urine Protein Negative, Urine Glucose (UA) Negative, Urine Ketones Negative, Urine Blood Negative, Urine Nitrate Positive H , Urine Bilirubin Negative, Urine Urobilinogen 0.2, Ur Leukocyte Esterase Large H, Urine RBC 0 - 2, Urine WBC 5 - 10, Ur Epithelial Cells 1 - 3, Urine Bacteria Many 07/06/18 13:05: Sodium 138, Potassium 4.2, Chloride 105, Carbon Dioxide 28, Anion Gap 9 L, BUN 18, Creatinine 1.0, Est GFR ( Amer) > 60, Est GFR (Non-Af Amer) 53, Random Glucose 115 H, Calcium 9.6, Total Bilirubin 0.5, AST 21, ALT 17, Alkaline Phosphatase 63, Total Protein 7.8, Albumin 4.1, Globulin 3.7, Albumin/Globulin Ratio 1.1 07/06/18 13:05: Free T4 0.95, TSH 3rd Generation 3.20, Alcohol, Quantitative < 10 07/06/18 13:05: Salicylates < 1 L, Acetaminophen < 10.0 L 07/06/18 13:05: WBC 10.8, RBC 4.64, Hgb 14.4, Hct 44.1, MCV 95.0, MCH 31.0, MCHC 32.7, RDW 13.6, Plt Count 263, MPV 10.0, Gran % 71.5 H, Lymph % (Auto) 20.8 L, [place] % (Auto) 6.8 H, Eos % (Auto) 0.7 L, Baso % (Auto) 0.2, Gran # 7.75 H, Lymph # (Auto) 2.3, [place] # (Auto) 0.7 H, Eos # (Auto) 0.1, Baso # (Auto) 0.02 Vital Signs Temp Pulse Resp BP Pulse Ox 07/10/18 09:24 56 L 97/62 L 07/10/18 06:45 98.2 F 56 L 20 97/62 L 07/09/18 17:11 69 120/63 07/09/18 09:13 60 140/71 07/09/18 07:00 98.2 F 60 22 140/71 07/08/18 16:58 70 150/86 07/08/18 10:40 102 H 171/96 H 07/08/18 07:00 97.3 F L 62 20 108/50 L 07/08/18 06:59 97.3 F L 62 22 108/50 L 07/07/18 20:40 67 20 116/76 07/07/18 16:00 75 115/59 L 07/07/18 08:53 87 157/88 H 07/07/18 07:10 98.3 F 87 20 157/88 H 07/06/18 18:00 18 07/06/18 16:35 98.2 F 81 18 158/70 H 97 07/06/18 15:00 90 18 168/78 H 96 07/06/18 12:43 98.0 F 97 H 18 176/89 H 97 Temp Pulse Resp BP Pulse Ox 98.6 F 65 20 143/85 97 07/18/18 07:32 07/18/18 08:30 07/18/18 07:32 07/18/18 08:30 07/13/18 15:00 Temp Pulse Resp BP Pulse Ox 97.6 F 62 18 162/69 H 97 07/19/18 06:25 07/19/18 08:38 07/19/18 06:25 07/19/18 08:38 07/13/18 15:00 Temp Pulse Resp BP Pulse Ox 97.6 F 62 18 162/69 H 97 07/19/18 06:25 07/19/18 08:38 07/19/18 06:25 07/19/18 08:38 07/13/18 15:00 DSM 5 Symptoms Update: Shortly the patient is a 82-year old female with a 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 Patient requires further evaluation and stabilization and medication adjustments. Patient was seen today at the treatment team meeting, presented calmer, patient reported that she had a good night sleep "surprisingly I am sleeping very well", pt has tendency of splitting staff, overidealizing this senior writer and devaluing others. pt tolerated Effexor 75 mg well, no side effects observed or reported. As per staff patient is visible in the unit, at times opinionated, but no agitation or aggression, pt expressed her concerns about discharge, pt said "I am afraid that I will become depressed again". Patient was seen by neurologist. family meeting took place 07/10/18, family is against ECT. see 07/11/18 notes for more detailed information. Impression: DSM 5 Diagnosis: MDD, severe with no psychosis Medication Change: No (Effexor ) Medical Record Reviewed: Yes Consults ordered or reviewed: cleared pt for ECT cleared pt for ECT consulted with over the phone, pt has no major contraindications for ECT Mental Status Examination - Cognitive Function Orientation: Person, Place, Situation, Time Memory: Intact Attention: Poor (improvement) Concentration: Poor (Some improvement) Association: WNL Fund of Knowledge: WNL - Mood Mood: Depressed (I feel very anxious), Anxious - Affect Affect: Constricted, Flat - Speech Speech: Appropriate - Formal Thought Process Formal Thought Process: No Impairment - Suicidal Ideation Suicidal Ideation: No - Homicidal Ideation Homicidal Ideation: No Goal/Treatment Plan - Goal/Treatment Plan Need for Continued Stay: Remain at risks for inpatient hospitalization, Severe depression anxiety, Discharge may exacerbated symptoms, Severe functional impai rment Progress Toward Problem(s) and Goals/Treatment Plan: Milieu/structure/supportive therapy ECT was canceled xanax 0.25tid prn for anxiety Remeron7.5 mg at the nighttime for insomnia and depression effexor 75 mg daily for depression/anxiety cardiology consult for lightheadedness/dizziness/falls appreciated consultation for discharge plan and social issues Family involvement Follow up on labs Will monitor closely Pt was educated about risk/benefits and alternatives of medications, coping strategies (safety plan, suicide prevention), relapse prevention, importance of follow up with psychiatrist and therapist, stay away from drugs/alcohol/smoking Estimated Date of D/C: 07/20/18
--- NOTE | 2018-07-20 08:44 | PN ---
DATE: 07/19/2018 SUBJECTIVE: The patient is 82-year-old seen and examined, doing well. She states she feels that she is improving, still did not decided about ETT. PHYSICAL EXAMINATION: VITAL SIGNS: She is afebrile, pulse 62, respirations 18, blood pressure . LUNGS: Bilateral fair airflow. No rhonchi or crackle. HEART: S1 and S2 audible. ABDOMEN: Soft and nontender. No rebound. No guarding. NEUROLOGIC: The patient is awake, alert, oriented, able to communicate, ambulatory with the walker. ASSESSMENT: 1. Major depression seem to be improving. 2. Hypertension. 3. Hyperlipidemia. 4. Chronic back pain. PLAN: Currently the patient is on clonidine as needed. She is on atorvastatin and metoprolol. Psych medications is being adjusted by the psychiatry. Belem Mahmood MD
--- NOTE | 2018-07-20 14:31 | PCM.PYCHPN ---
Psychiatric Progress Note - Psychiatric Progress Note Patient seen today, length of contact: 30min Patient Chief Complaint: "I am feeling very anxious about going back home..." Problems Identified/Issues Discussed: meds/ECT risk/benefits and alternatives, suicide/ homicide prevention, past psychiatric h/o, current psychiatric symptoms, medical problems, risk/benefits and alternatives of medications, medications compliance, coping strategies, substance abuse h/o, relapse prevention, importance of follow up with psychiatrist and therapist, discharge plan. Medical Problems: pt is relatively healthy h/o HTN h/o falls Diagnostic Results: 07/06/18 13:05 07/06/18 13:05 Lab Results 07/07/18 08:10: RPR Nonreactive 07/07/18 08:10: Free T4 0.96, TSH 3rd Generation 2.37 07/07/18 08:10: Fasting Glucose 97, Triglycerides 86, Cholesterol 227 H, LDL Cholesterol Direct 164 H, HDL Cholesterol 56 07/06/18 14:50: Urine Color Light yellow, Urine Appearance Sl cloudy, Urine pH 7.0, Ur Specific [place] <= 1.005, Urine Protein Negative, Urine Glucose (UA) Negative, Urine Ketones Negative, Urine Blood Negative, Urine Nitrate Positive H , Urine Bilirubin Negative, Urine Urobilinogen 0.2, Ur Leukocyte Esterase Large H, Urine RBC 0 - 2, Urine WBC 5 - 10, Ur Epithelial Cells 1 - 3, Urine Bacteria Many 07/06/18 13:05: Sodium 138, Potassium 4.2, Chloride 105, Carbon Dioxide 28, Anion Gap 9 L, BUN 18, Creatinine 1.0, Est GFR ( Amer) > 60, Est GFR (Non-Af Amer) 53, Random Glucose 115 H, Calcium 9.6, Total Bilirubin 0.5, AST 21, ALT 17, Alkaline Phosphatase 63, Total Protein 7.8, Albumin 4.1, Globulin 3.7, Albumin/Globulin Ratio 1.1 07/06/18 13:05: Free T4 0.95, TSH 3rd Generation 3.20, Alcohol, Quantitative < 10 07/06/18 13:05: Salicylates < 1 L, Acetaminophen < 10.0 L 07/06/18 13:05: WBC 10.8, RBC 4.64, Hgb 14.4, Hct 44.1, MCV 95.0, MCH 31.0, MCHC 32.7, RDW 13.6, Plt Count 263, MPV 10.0, Gran % 71.5 H, Lymph % (Auto) 20.8 L, [place] % (Auto) 6.8 H, Eos % (Auto) 0.7 L, Baso % (Auto) 0.2, Gran # 7.75 H, Lymph # (Auto) 2.3, [place] # (Auto) 0.7 H, Eos # (Auto) 0.1, Baso # (Auto) 0.02 Vital Signs Temp Pulse Resp BP Pulse Ox 07/10/18 09:24 56 L 97/62 L 07/10/18 06:45 98.2 F 56 L 20 97/62 L 07/09/18 17:11 69 120/63 07/09/18 09:13 60 140/71 07/09/18 07:00 98.2 F 60 22 140/71 07/08/18 16:58 70 150/86 07/08/18 10:40 102 H 171/96 H 07/08/18 07:00 97.3 F L 62 20 108/50 L 07/08/18 06:59 97.3 F L 62 22 108/50 L 07/07/18 20:40 67 20 116/76 07/07/18 16:00 75 115/59 L 07/07/18 08:53 87 157/88 H 07/07/18 07:10 98.3 F 87 20 157/88 H 07/06/18 18:00 18 07/06/18 16:35 98.2 F 81 18 158/70 H 97 07/06/18 15:00 90 18 168/78 H 96 07/06/18 12:43 98.0 F 97 H 18 176/89 H 97 Temp Pulse Resp BP Pulse Ox 98.6 F 65 20 143/85 97 07/18/18 07:32 07/18/18 08:30 07/18/18 07:32 07/18/18 08:30 07/13/18 15:00 Temp Pulse Resp BP Pulse Ox 97.6 F 62 18 162/69 H 97 07/19/18 06:25 07/19/18 08:38 07/19/18 06:25 07/19/18 08:38 07/13/18 15:00 Temp Pulse Resp BP Pulse Ox 97.6 F 62 18 162/69 H 97 07/19/18 06:25 07/19/18 08:38 07/19/18 06:25 07/19/18 08:38 07/13/18 15:00 DSM 5 Symptoms Update: Shortly the patient is a 82-year old female with a 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 Patient requires further evaluation and stabilization and medication adjustments. Patient was seen today Nursing station, patient presented to be mildly anxious, patient said that she is feeling anxious about going back home, patient is willing to follow up with outpatient psychiatrist as well as therapist, patient was asking reasonable and logical questions, patient complained of poor worsening of her anxiety, ask Xanax to be increased, will do so. 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 pt tolerated Effexor 75 mg well, no side effects observed or reported. As per staff patient is visible in the unit, at times opinionated, but no agitation or aggression, pt expressed her concerns about discharge, pt said "I am afraid that I will become depressed again". Patient was seen by neurologist. family meeting took place 07/10/18, family is against ECT. see 07/11/18 notes for more detailed information. Impression: DSM 5 Diagnosis: MDD, severe with no psychosis Medication Change: Yes (xanax increased) Medical Record Reviewed: Yes Consults ordered or reviewed: cleared pt for ECT cleared pt for ECT consulted with over the phone, pt has no major contraindications for ECT Mental Status Examination - Cognitive Function Orientation: Person, Place, Situation, Time Memory: Intact Attention: Poor (improvement) Concentration: Poor (Some improvement) Association: WNL Fund of Knowledge: WNL - Mood Mood: Depressed (I am not that depressed, but anxous), Anxious - Affect Affect: Constricted, Flat - Speech Speech: Appropriate - Formal Thought Process Formal Thought Process: No Impairment - Suicidal Ideation Suicidal Ideation: No - Homicidal Ideation Homicidal Ideation: No Goal/Treatment Plan - Goal/Treatment Plan Need for Continued Stay: Remain at risks for inpatient hospitalization, Severe depression anxiety, Discharge may exacerbated symptoms, Severe functional impa irment Progress Toward Problem(s) and Goals/Treatment Plan: Milieu/structure/supportive therapy ECT was canceled xanax 0.25tid prn for anxiety Remeron7.5 mg at the nighttime for insomnia and depression effexor 75 mg daily for depression/anxiety cardiology consult for lightheadedness/dizziness/falls appreciated consultation for discharge plan and social issues Family involvement Follow up on labs Will monitor closely Pt was educated about risk/benefits and alternatives of medications, coping strategies (safety plan, suicide prevention), relapse prevention, importance of follow up with psychiatrist and therapist, stay away from drugs/alcohol/smoking Estimated Date of D/C: 07/21/18
--- NOTE | 2018-07-20 21:15 | PN ---
DATE: 07/20/2018 SUBJECTIVE: The patient is an 82-year-old, seen and examined, ambulating, feeling okay, and get depressed at times. Overall, feeling better. PHYSICAL EXAMINATION: VITAL SIGNS: She is afebrile, pulse 56, respirations 18, and blood pressure 101/53. LUNGS: Bilateral fair airflow. No rhonchi or crackle. HEART: S1 and S2 audible. ABDOMEN: Soft and nontender. No rebound. No guarding. NEUROLOGIC: The patient is awake, alert, oriented, able to communicate, and ambulatory with the walker. ASSESSMENT: 1. Major depression, feeling little anxious today because of discharge planning. 2. Hypertension. 3. Hyperlipidemia. 4. Chronic back pain. PLAN: The patient is stable on current medical management and psych medication will be adjusted by the psychiatrist. Belem Mahmood MD
[2018-07-21 07:34] VITALS: BP 171/81; PULSE 60; RESP 20; TEMP 98.5
--- NOTE | 2018-07-21 15:11 | PCM.PYCHDC ---
Mental Status Examination - Mental Status Examination Orientation: Person, Place, Situation, Time Memory: Intact Mood: Neutral Affect: Constricted (But reactive and mood congruent) Speech: Appropriate Attention: WNL Concentration: WNL Association: WNL Fund of Knowledge: WNL Formal Thought Process: No Impairment Description of patient's judgement and insight: Pt has improved insight into mental and medical illness, pt was compliant with medications and unit rules and regulations, pt was going to groups, was calm, cooperative, socially appropriate, no behavioral incidents, no agitation, no aggression. Psychotic Thoughts and Behaviors: Pt denied v/a/t hallucinations, denied paranoid ideations, pt does not appear to be psychotic, and thought process is goal directed. Suicidal Ideation: No Current Homicidal Ideation?: No Plan: pt adamantly denied thoughts of harming self or others denied intent or plan. Discharge Summary - Discharge Note Reason for Hospitalization: Patient was admitted to the psychiatric inpatient unit for evaluation and stab ilization of depressive symptoms, inability to function, patient had suicidal ideation and plan either to cut her wrists or to overdose on medications. Psychiatric History (includes Medical, Family, Personal Hx): see HPI Laboratory Data: 07/06/18 13:05 07/06/18 13:05 Lab Results 07/07/18 08:10: RPR Nonreactive 07/07/18 08:10: Free T4 0.96, TSH 3rd Generation 2.37 07/07/18 08:10: Fasting Glucose 97, Triglycerides 86, Cholesterol 227 H, LDL Cholesterol Direct 164 H, HDL Cholesterol 56 07/06/18 14:50: Urine Color Light yellow, Urine Appearance Sl cloudy, Urine pH 7.0, Ur Specific [place] <= 1.005, Urine Protein Negative, Urine Glucose (UA) Negative, Urine Ketones Negative, Urine Blood Negative, Urine Nitrate Positive H , Urine Bilirubin Negative, Urine Urobilinogen 0.2, Ur Leukocyte Esterase Large H, Urine RBC 0 - 2, Urine WBC 5 - 10, Ur Epithelial Cells 1 - 3, Urine Bacteria Many 07/06/18 13:05: Sodium 138, Potassium 4.2, Chloride 105, Carbon Dioxide 28, Anion Gap 9 L, BUN 18, Creatinine 1.0, Est GFR ( Amer) > 60, Est GFR (Non-Af Amer) 53, Random Glucose 115 H, Calcium 9.6, Total Bilirubin 0.5, AST 21, ALT 17, Alkaline Phosphatase 63, Total Protein 7.8, Albumin 4.1, Globulin 3.7, Albumin/Globulin Ratio 1.1 07/06/18 13:05: Free T4 0.95, TSH 3rd Generation 3.20, Alcohol, Quantitative < 10 07/06/18 13:05: Salicylates < 1 L, Acetaminophen < 10.0 L 07/06/18 13:05: WBC 10.8, RBC 4.64, Hgb 14.4, Hct 44.1, MCV 95.0, MCH 31.0, MCHC 32.7, RDW 13.6, Plt Count 263, MPV 10.0, Gran % 71.5 H, Lymph % (Auto) 20.8 L, [place] % (Auto) 6.8 H, Eos % (Auto) 0.7 L, Baso % (Auto) 0.2, Gran # 7.75 H, Lymph # (Auto) 2.3, [place] # (Auto) 0.7 H, Eos # (Auto) 0.1, Baso # (Auto) 0.02 Vital Signs Temp Pulse Resp BP Pulse Ox 07/21/18 08:10 60 171/81 H 07/21/18 08:07 60 07/21/18 07:32 98.5 F 60 20 171/81 H 07/20/18 18:11 56 L 101/53 L 07/20/18 16:00 56 L 101/53 L 07/20/18 09:18 60 166/82 H 07/20/18 07:14 98.3 F 60 18 166/82 H 07/19/18 16:21 67 139/72 07/19/18 16:00 67 139/72 07/19/18 08:38 62 162/69 H 07/19/18 06:25 97.6 F 62 18 162/69 H 07/18/18 16:26 59 L 126/67 07/18/18 15:00 59 L 126/67 07/18/18 08:30 65 143/85 07/18/18 07:32 98.6 F 65 20 143/85 07/17/18 17:51 65 100/47 L 07/17/18 16:03 58 L 100/47 L 07/17/18 10:32 62 123/74 07/17/18 07:00 98.1 F 54 L 20 124/76 07/16/18 16:00 57 L 124/61 07/15/18 16:00 55 L 134/66 07/15/18 07:19 98.2 F 54 L 20 122/58 L 07/14/18 15:00 57 L 117/59 L 07/14/18 06:42 98.5 F 71 18 162/81 H 07/13/18 18:15 64 132/77 07/13/18 15:59 81 186/88 H 07/13/18 15:00 98.9 F 81 16 186/88 H 97 07/13/18 08:11 56 L 123/66 07/13/18 06:48 97.8 F 56 L 18 123/66 07/12/18 22:44 55 L 20 133/72 07/12/18 16:00 77 163/78 H 07/12/18 15:45 77 163/78 H 07/12/18 07:48 53 L 125/59 L 07/12/18 07:12 98.6 F 53 L 125/59 L 07/11/18 15:41 67 136/78 07/11/18 15:33 67 16 136/78 07/11/18 15:00 67 136/78 07/11/18 10:52 111 H 177/103 H 07/11/18 10:48 111 H 17 177/103 H 07/11/18 06:34 98.1 F 82 18 160/82 H 07/10/18 16:42 68 107/62 07/10/18 15:00 68 18 107/62 07/10/18 09:24 56 L 97/62 L 07/10/18 06:45 98.2 F 56 L 20 97/62 L 18 17:11 69 120/63 18 09:13 60 140/71 07/09/18 07:00 98.2 F 60 22 140/71 18 16:58 70 150/86 07/08/18 10:40 102 H 171/96 H 07/08/18 07:00 97.3 F L 62 20 108/50 L 18 06:59 97.3 F L 62 22 108/50 L 18 20:40 67 20 116/76 18 16:00 75 115/59 L 07/07/18 08:53 87 157/88 H 07/07/18 07:10 98.3 F 87 20 157/88 H 07/06/18 18:00 18 07/06/18 16:35 98.2 F 81 18 158/70 H 97 07/06/18 15:00 90 18 168/78 H 96 07/06/18 12:43 98.0 F 97 H 18 176/89 H 97 Consultations:: List each consultation separately and include: 1. Reason for request. 2. Findings. 3. Follow-up Consultations: cleared pt for ECT cleared pt for ECT consulted with over the phone, pt has no major contraindications for ECT Summary of Hospital Course include:: 1. Description of specific treatment plan utilized for patients during their course of treatmen. 2. Summarize the time- course for resolution of acute symptoms and/or regressed behaviors. 3. Describe issues identified and worked on during hospitalization. 4. Describe medication utilized. 5. Describe medical problems identified and treated. 6. 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 Patient required further evaluation and sta bilization and medication adjustments. At the time of patient presented to be depressed, hopeless, helpless. Please see admission note for more detailed information Patient reported that she feels her medication in [facility] pharmacy, pharmacy contacted [phone] and medication list was obtained. May 18, 2018 patient was prescribed the following medications: Clonazepam 0.5 mg twice a day Abilify 5 mg daily Wellbutrin 300 mg daily Effexor 37.5 mg daily Patient was prescribed metoprolol 50 mg daily 07/03/2018 patient was prescribed Xanax 0.5 mg twice a day Psychotropic medications were prescribed by Dr. Green, and metoprolol by Dr. Hardy Over the course of this hospitalization patient was indecisive about her treatment, initially patient wanted to have ECT treatment but patient family convinced patient to be on medications, please see notes for more detailed information. Patient was stabilized on the following medications: Effexor extended release 75 mg daily for depression and anxiety Xanax 0.25 mg 3 times a day as needed for anxiety Remeron 7.5 mg at the nighttime for depression as well as insomnia Patient tolerated medications well, no side effects observed, aims 0, no EPS. Family meeting took place with patient's son as well as daughter, please see note for more detailed information. Patient primary care physician also was involved, . please see all notes for more detailed information. 07/06/18 13:05 07/06/18 13:05 Lab Results 07/07/18 08:10: Free T4 0.96, TSH 3rd Generation 2.37 07/07/18 08:10: Fasting Glucose 97, Triglycerides 86, Cholesterol 227 H, LDL Cholesterol Direct 164 H, HDL Cholesterol 56 07/06/18 14:50: Urine Color Light yellow, Urine Appearance Sl cloudy, Urine pH 7.0, Ur Specific [place] <= 1.005, Urine Protein Negative, Urine Glucose (UA) Negative, Urine Ketones Negative, Urine Blood Negative, Urine Nitrate Positive H , Urine Bilirubin Negative, Urine Urobilinogen 0.2, Ur Leukocyte Esterase Large H, Urine RBC 0 - 2, Urine WBC 5 - 10, Ur Epithelial Cells 1 - 3, Urine Bacteria Many 07/06/18 13:05: Sodium 138, Potassium 4.2, Chloride 105, Carbon Dioxide 28, Anion Gap 9 L, BUN 18, Creatinine 1.0, Est GFR ( Amer) > 60, Est GFR (Non-Af Amer) 53, Random Glucose 115 H, Calcium 9.6, Total Bilirubin 0.5, AST 21, ALT 17, Alkaline Phosphatase 63, Total Protein 7.8, Albumin 4.1, Globulin 3.7, Albumin/Globulin Ratio 1.1 07/06/18 13:05: Free T4 0.95, TSH 3rd Generation 3.20, Alcohol, Quantitative < 10 07/06/18 13:05: Salicylates < 1 L, Acetaminophen < 10.0 L 07/06/18 13:05: WBC 10.8, RBC 4.64, Hgb 14.4, Hct 44.1, MCV 95.0, MCH 31.0, MCHC 32.7, RDW 13.6, Plt Count 263, MPV 10.0, Gran % 71.5 H, Lymph % (Auto) 20.8 L, [place] % (Auto) 6.8 H, Eos % (Auto) 0.7 L, Baso % (Auto) 0.2, Gran # 7.75 H, Lymph # (Auto) 2.3, [place] # (Auto) 0.7 H, Eos # (Auto) 0.1, Baso # (Auto) 0.02 Vital Signs Temp Pulse Resp BP Pulse Ox 07/07/18 08:53 87 157/88 H 07/07/18 07:10 98.3 F 87 20 157/88 H 07/06/18 18:00 18 07/06/18 16:35 98.2 F 81 18 158/70 H 97 07/06/18 15:00 90 18 168/78 H 96 07/06/18 12:43 98.0 F 97 H 18 176/89 H 97 Over the course of this hospitalization pt was attending groups, pt also had medication management, had therapeutic milieu. Overall pt improved significantly, pt's affect became brighter, pt was less depressed, has realistic future oriented plans, pt also does not appear to be psychotic, or anxious, pt was socially appropriate, no behavioral issues, pts insight improved as well and soon pt deemed to be ready for discharge. At the time of the discharge pt denied been depressed, denied thoughts of harming self or others, denied psychotic symptoms, and pt does not appeared to be psychotic, denied been anxious, pt is not in imminent danger to self or others, pt was referred to 's office, information about follow up appointment, time and address provided to the pt, it is patient responsibility to follow up with outpatient clinic, PMD as well as specialists (see SW note for more detailed information). In case pt will need to obtain results of studies pending at discharge pt was provided with contact information of Psychiatric Inpatient unit [phone] as well as Medical Record Department [phone]. pt does not smoke, drinks socially, pt was advised to minimize her drinking pt was provided with prescriptions for all of medications (please see medication reconciliation form) Pt was educated about safety plan in case of worsening of symptoms or in case of suicidal or homicidal ideation call 911 or go to the nearest ER, also was educated to take meds as prescribed and stay away from drugs, pt verbalized understanding. - Diagnosis (1) MDD (major depressive disorder) Current Visit: Yes Status: Chronic Priority: High (2) Anxiety Current Visit: Yes Status: Chronic Priority: High - Final Diagnosis (DSM 5) Condition upon Discharge: STABLE Disposition: HOME/ ROUTINE Follow-up Treatment Plan: At the time of the discharge pt denied been depressed, denied thoughts of harming self or others, denied psychotic symptoms, and pt does not appeared to be psychotic, denied been anxious, pt is not in imminent danger to self or others, pt was referred to 's office, information about follow up appointment, time and address provided to the pt, it is patient responsibility to follow up with outpatient clinic, PMD as well as specialists (see SW note for more detailed information). In case pt will need to obtain results of studies pending at discharge pt was provided with contact information of Psychiatric Inpatient unit [phone] as well as Medical Record Department [phone]. pt does not smoke, drinks socially, pt was advised to minimize her drinking pt was provided with prescriptions for all of medications (please see medication reconciliation form) Pt was educated about safety plan in case of worsening of symptoms or in case of suicidal or homicidal ideation call 911 or go to the nearest ER, also was educated to take meds as prescribed and stay away from drugs, pt verbalized understanding. Prescriptions/Medication Reconciliation: ALPRAZolam [Xanax] 0.25 mg PO TID #45 tab Atorvastatin [Lipitor] 20 mg PO DAILY #7 tab Metoprolol Tartrate [Lopressor] 50 mg PO BID #14 tab Mirtazapine [Remeron] 7.5 mg PO HS #7 tab Venlafaxine [Effexor-XR] 75 mg PO DAILY #14 cer - Smoking Cessation Smoking Cessation Medication prescribed: No Reason for not providing: Patient does not smoke - Antipsychotic Medications Pt discharged on 2 or more routine antipsychotic medications: No
--- NOTE | 2018-07-21 22:43 | PN ---
DATE: 07/21/2018 SUBJECTIVE: The patient is an 82-year-old, seen and examined. Doing well. Anxious to go home today. No nausea. No vomiting. No diarrhea. Eating and tolerating. Ambulating with a walker. PHYSICAL EXAMINATION VITAL SIGNS: The patient is afebrile, pulse 60, respirations 20, blood pressure 171/81. LUNGS: Bilateral fair airflow. No rhonchi or crackle. HEART: S1 and S2 audible. ABDOMEN: Soft and nontender. No rebound. No guarding. NEUROLOGIC: The patient is awake, alert, oriented, communicative and ambulatory. ASSESSMENT AND PLAN: 1. Status post major depression. 2. Hypertension. 3. Hyperlipidemia. PLAN: The patient is being discharged home today. She is given prescription of metoprolol 50 mg twice a day and atorvastatin 20 mg daily. She will follow with Dr. Grier, who is a primary care as an outpatient. Belem Mahmood MD
== END 2018-07-21 16:16 | disposition home or self-care (01) | DRG 885 ==
LOC: ED 12:29 → ERH 16:26 → PSYC 17:34
PROVIDERS: ADMIT Psychiatry & Neurology Psychiatry; ATTEND Psychiatry & Neurology Psychiatry
DX: F32.2 Major depressive disorder, single episode, severe without psychotic features (principal); I42.9 Cardiomyopathy, unspecified; N39.0 Urinary tract infection, site not specified; B96.20 Unspecified Escherichia coli [E. coli] as the cause of diseases classified elsewhere; R45.851 Suicidal ideations; F41.9 Anxiety disorder, unspecified; I10 Essential (primary) hypertension; I27.20 Pulmonary hypertension, unspecified; E78.5 Hyperlipidemia, unspecified; I08.3 Combined rheumatic disorders of mitral, aortic and tricuspid valves; G89.29 Other chronic pain; E78.1 Pure hyperglyceridemia; Z91.81 History of falling; G47.00 Insomnia, unspecified; Z96.641 Presence of right artificial hip joint; Z81.8 Family history of other mental and behavioral disorders; Z86.718 Personal history of other venous thrombosis and embolism